=== PATIENT | male | born 1990 | race Caucasian/White ===

== ENCOUNTER → 2018-07-17 | Outpatient (CLI) | payer MEDICAID, SELFPAY | LOC: M OUTALCOH 10:19 | PROVIDERS: ATTEND Psychiatry & Neurology Psychiatry | DX: Z13.9 Encounter for screening, unspecified (principal) ==

== ENCOUNTER 2018-08-15 16:00 | Outpatient (RCR) | payer MEDICAID, SELFPAY | END 2018-08-22 | LOC: M OUTALCOH 16:00 | PROVIDERS: ATTEND Psychiatry & Neurology Psychiatry | DX: F12.20 Cannabis dependence, uncomplicated (principal); F14.20 Cocaine dependence, uncomplicated; F17.200 Nicotine dependence, unspecified, uncomplicated ==

== ENCOUNTER 2021-03-28 03:25 | Emergency (ER) | payer MEDICAID ==
[~2021-03-28] VITALS: Ht 170.2 cm; Wt 68.2 kg
[~2021-03-28 03:25] MED LIST: RALTEGRAVIR 400 MG TAB (ISENTRESS) PO SCH; TRUVADA 200MG/300MG TABLET PO SCH
[2021-03-28 07:11] LABS: BASO # 0.1 10^3/uL (0.0-0.2); BASO % 0.7 % (0.0-1.0); EOS # 0.9 10^3/uL (0.0-0.5); EOS % 9.4 % (0.0-3.0); HEMATOCRIT 40.4 % (42.0-52.0); HEMOGLOBIN 13.4 g/dl (13.5-17.5); LYMPH # 2.3 10^3/uL (1.5-5.0); LYMPH % 25.3 % (24.0-44.0); MEAN CORPUSCULAR HEMOGLOBIN 29.7 pg (27.0-33.0); MEAN CORPUSCULAR HGB CONC 33.2 g/dl (32.0-36.5); MEAN CORPUSCULAR VOLUME 89.6 fl (80.0-96.0); MONO % 11.2 % (2.0-8.0); NEUTROPHILS # 4.9 10^3/uL (1.5-8.5); NEUTROPHILS % 53.3 % (36.0-66.0); PLATELET COUNT, AUTOMATED 297 10^3/uL (150-450); RED BLOOD COUNT 4.51 10^6/uL (4.30-6.10); WHITE BLOOD COUNT 9.2 10^3/uL (4.0-10.0)
[2021-03-28] MEDS ORDERED: ALBUTEROL 90 MCG/ACT 8GM HFA INHALER INH ONE (07:20)
[2021-03-28] MEDS ORDERED: EXPOSURE KIT-ADULT 7 DAY SUPPLY PO ONE (07:25)
[2021-03-28 07:40] LABS: ALBUMIN 3.8 GM/DL (3.2-5.2); ALT/SGPT 25 U/L (12-78); BILIRUBIN,TOTAL 0.3 MG/DL (0.2-1.0); BLOOD UREA NITROGEN 30 MG/DL (7-18); CALCIUM LEVEL 8.9 MG/DL (8.5-10.1); CARBON DIOXIDE LEVEL 29 MEQ/L (21-32); CHLORIDE LEVEL 107 MEQ/L (98-107); GLOMERULAR FILTRATION RATE > 60.0 (>60); GLUCOSE, FASTING 83 MG/DL (70-100); POTASSIUM SERUM 5.3 MEQ/L (3.5-5.1); SODIUM LEVEL 141 MEQ/L (136-145); TOTAL PROTEIN 6.9 GM/DL (6.4-8.2)
--- OUTSIDE RECORDS SUMMARY | 2021-03-28 07:50 | CCD ---
Author Author Bryson Conway Organization Unknown Address [address] [place] [address] [place] [address] Phone Unavailable Care Team Providers Care Heel Stiffener Name Role Phone Keerthi Conway PCP Allergies, Adverse Reactions, Alerts No Data in Section Problem List Concept Problem Description Status Start Date Created Date Resolv ed Date Snomed Code F43.23 Adjustment Disorder, With mixed anxiety and depressed mood Active 02/12/2021 Medications No Data in Section Social History Social History Element Description Concept Effective Date Smoking Status Unknown if ever smoked [id number] Immunizations No Data in Section Vital Signs No Data in Section Procedures Date Concept Id Description Targeted Site Concept Targeted Site Concept Type 02/12/2021 H2011 Crisis Intervention - Brief CPT Patient has no history of implantable de vices Encounters Encounter Start Date End Date Encounter Type Description Diagnosis Di agnosis Desc Location Author First Name Author Last Name Npid Taxonomy Cod e Taxonomy Desc Phone Number Location Addr1 Location Addr2 Location [facility] Location [place] Location Zip [id number] 02/12/2021 02/12/2021 H2011 Crisis Intervention - Brief F43.23 Adjustment disorder with mixed anxiety and depressed mood [facility] [id number] Sterile Preparation Technician [phone] [address] [place] [address] [place] [address] Plan of Treatment No Data in Section Lab Results No Data in Section Instructions No Data in Section Insurance Providers Insurance Id Policy Effective Date Policy Thru Date Company N shea [id number] 2021 [facility]
--- OUTSIDE RECORDS SUMMARY | 2021-03-28 07:50 | CCD ---
Author Author Bryson Scott Organization Unknown Address [address] [place] [address] Phone Unavailable Care Team Providers Care Pyrometer Temperature Regulator Name Role Phone TylerJoyce PCP Allergies, Adverse Reactions, Alerts No Data in Section Problem List Concept Problem Description Status Start Date Created Date Resolv ed Date Snomed Code F43.23 Adjustment Disorder, With mixed anxiety and depressed mood Active 02/13/2021 Medications No Data in Section Social History Social History Element Description Concept Effective Date Smoking Status Unknown if ever smoked [id number] Immunizations No Data in Section Vital Signs No Data in Section Procedures Date Concept Id Description Targeted Site Concept Targeted Site Concept Type 02/13/2021 H2011 Crisis Intervention - Brief CPT Patient has no history of implantable de vices Encounters Encounter Start Date End Date Encounter Type Description Diagnosis Di agnosis Desc Location Author First Name Author Last Name Npid Taxonomy Cod e Taxonomy Desc Phone Number Location Addr1 Location Addr2 Location [facility] Location [facility] Location Zip [id number] 02/13/2021 02/13/2021 H2011 Crisis Intervention - Brief F43.23 Adjustment disorder with mixed anxiety and depressed mood [facility] Tyler Cook [id number] Cash Sales Audit Clerk [phone] [address] [place] [address] Plan of Treatment No Data in Section Lab Results No Data in Section Instructions No Data in Section Insurance Providers Insurance Id Policy Effective Date Policy Thru Date Company N shea [id number] 2021 [facility]
--- OUTSIDE RECORDS SUMMARY | 2021-03-28 07:50 | CCD | Continuity of Care Document ---
Author Author Nurse 2, Bryson Sainz Organization Unknown Address [address] [place] [address] Phone Unavailable Problems Description No Information Available Social History Type Date Description Comments Sex Unknown Allergies and adverse reactions Description No Known Drug Allergies Medications Description No Information Available Immunizations Description No Information Available Vital Signs Date Vital Result Comment 02/08/2021 9:22am BP Systolic 122 mmHg BP Diastolic 78 mmHg Heart Rate 66 /min Weight 149.00 lb Results Description No Information Available Procedures Description No Information Available Medical Devices Description No Information Available Encounters Description No Information Available Assessments Description No Information Available Plan of Treatment No Information Available Functional Status Description No Information Available Mental Status Description No Information Available Referrals Description No Information Available
--- OUTSIDE RECORDS SUMMARY | 2021-03-28 07:50 | CCD ---
Author Author Bryson Scott Organization Unknown Address [address] [place] [address] Phone Unavailable Care Team Providers Care Tubing Assembler Name Role Phone TylerJoyce PCP Allergies, Adverse Reactions, Alerts No Data in Section Problem List Concept Problem Description Status Start Date Created Date Resolv ed Date Snomed Code F43.23 Adjustment Disorder, With mixed anxiety and depressed mood Active 02/09/2021 Medications No Data in Section Social History Social History Element Description Concept Effective Date Smoking Status Unknown if ever smoked [id number] Immunizations No Data in Section Vital Signs No Data in Section Procedures Date Concept Id Description Targeted Site Concept Targeted Site Concept Type 02/09/2021 H2011 Crisis Intervention - Brief CPT Patient has no history of implantable de vices Encounters Encounter Start Date End Date Encounter Type Description Diagnosis Di agnosis Desc Location Author First Name Author Last Name Npid Taxonomy Cod e Taxonomy Desc Phone Number Location Addr1 Location Addr2 Location [facility] Location [facility] Location Zip [id number] 02/09/2021 02/09/2021 H2011 Crisis Intervention - Brief F43.23 Adjustment disorder with mixed anxiety and depressed mood [facility] Tyler Cook [phone] [id number] Line Patrolman [phone] [address] [place] [address] Plan of Treatment No Data in Section Lab Results No Data in Section Instructions No Data in Section Insurance Providers Insurance Id Policy Effective Date Policy Thru Date Company N shea [id number] [facility]
--- OUTSIDE RECORDS SUMMARY | 2021-03-28 07:51 | CCD | Continuity of Care Document ---
Author Author Bryson MARIE M.D. Organization Unknown Address [address] [place] [address] Phone [phone] Problems Description No Information Available Social History Type Date Description Comments Sex Unknown Allergies and adverse reactions Description No Information Available Medications Description No Information Available Immunizations Description No Information Available Vital Signs Description No Information Available Results Description No Information Available Procedures Description No Information Available Medical Devices Description No Information Available Encounters Description No Information Available Assessments Description No Information Available Plan of Treatment No Information Available Functional Status Description No Information Available Mental Status Description No Information Available Referrals Description No Information Available
--- OUTSIDE RECORDS SUMMARY | 2021-03-28 07:51 | CCD ---
Author Author [facility] Organization [facility] Address Unknown Phone Unavailable Care Team Providers Care Swaging Machine Adjuster Name Role Phone Joyce Scott Unavailable ASARMARIA E MD Unavailable Unavailable ASAR, MARIA E LATHAM Unavailable Unavailable ASARMARIA E MD Unavailable Unavailable ASARMARIA E MD Unavailable Unavailable ASARMARIA E MD Unavailable Unavailable ASARMARIA E MD Unavailable Unavailable ASARMARIA E MD Unavailable Unavailable Asar, Hasanalusama Sanderson MD Unavailable Unavailable UNKNOWN Unavailable Unavailable REASON, L EDWARD DO Unavailable Unavailable REASON, L EDWARD DO Unavailable Unavailable REASON, L EDWARD DO Unavailable Unavailable REASON, L EDWARD DO Unavailable Unavailable REASON, L EDWARD DO Unavailable Unavailable REASON, L EDWARD DO Unavailable Unavailable REASON, L EDWARD DO Unavailable Unavailable REASON, L EDWARD DO Unavailable Unavailable REASON, L EDWARD DO Unavailable Unavailable REASON, L EDWARD DO Unavailable Unavailable REASON, L EDWARD DO Unavailable Unavailable REASON, L EDWARD DO Unavailable Unavailable REASON, L EDWARD DO Unavailable Unavailable REASON, L EDWARD DO Unavailable Unavailable REASON, L EDWARD DO Unavailable Unavailable REASON, L EDWARD DO Unavailable Unavailable REASON, L EDWARD DO Unavailable Unavailable REASON, L EDWARD DO Unavailable Unavailable REASON, L EDWARD DO Unavailable Unavailable REASON, L EDWARD DO Unavailable Unavailable REASON, L EDWARD DO Unavailable Unavailable REASON, L EDWARD DO Unavailable Unavailable REASON, L EDWARD DO Unavailable Unavailable REASON, L EDWARD DO Unavailable Unavailable REASON, L EDWARD DO Unavailable Unavailable REASON, L EDWARD DO Unavailable Unavailable REASON, L EDWARD DO Unavailable Unavailable REASON, L EDWARD DO Unavailable Unavailable REASON, L EDWARD DO Unavailable Unavailable REASON, L EDWARD DO Unavailable Unavailable REASON, L EDWARD DO Unavailable Unavailable REASON, L EDWARD DO Unavailable Unavailable REASON, L EDWARD DO Unavailable Unavailable REASON, L EDWARD DO Unavailable Unavailable REASON, L EDWARD DO Unavailable Unavailable REASON, L EDWARD DO Unavailable Unavailable REASON, L EDWARD DO Unavailable Unavailable REASON, L EDWARD DO Unavailable Unavailable REASON, L EDWARD DO Unavailable Unavailable REASON, L EDWARD DO Unavailable Unavailable REASON, L EDWARD DO Unavailable Unavailable REASON, L EDWARD DO Unavailable Unavailable REASON, L EDWARD DO Unavailable Unavailable REASON, L EDWARD DO Unavailable Unavailable REASON, L EDWARD DO Unavailable Unavailable REASON, L EDWARD DO Unavailable Unavailable REASON, L EDWARD DO Unavailable Unavailable REASON, L EDWARD DO Unavailable Unavailable REASON, L EDWARD DO Unavailable Unavailable REASON, L EDWARD DO Unavailable Unavailable REASON, L EDWARD DO Unavailable Unavailable REASON, L EDWARD DO Unavailable Unavailable REASON, L EDWARD DO Unavailable Unavailable REASON, L EDWARD DO Unavailable Unavailable REASON, L EDWARD DO Unavailable Unavailable REASON, L EDWARD DO Unavailable Unavailable REASON, L EDWARD DO Unavailable Unavailable REASON, L EDWARD DO Unavailable Unavailable REASON, L EDWARD DO Unavailable Unavailable REASON, L EDWARD DO Unavailable Unavailable REASON, L EDWARD DO Unavailable Unavailable REASON, L EDWARD DO Unavailable Unavailable REASON, L EDWARD DO Unavailable Unavailable REASON, L EDWARD DO Unavailable Unavailable REASON, L EDWARD DO Unavailable Unavailable REASON, L EDWARD DO Unavailable Unavailable REASON, L EDWARD DO Unavailable Unavailable REASON, L EDWARD DO Unavailable Unavailable Keerthi Conway Unavailable ZoraidaKeerthi Unavailable Desiree Thompson Unavailable Unavailable Re-disclosure Warning The records that you are about to access may contain information from federally-assisted alcohol or drug abuse programs. If such information is present, then the following federally mandated warning applies: This information has been disclosed to you from records protected by federal confidentiality rules (42 CFR part 2). The federal rules prohibit you from making any further disclosure of this information unless further disclosure is expressly permitted by the written consent of the person to whom it pertains or as otherwise permitted by 42 CFR part 2. A general authorization for the release of medical or other information is NOT sufficient for this purpose. The Federal rules restrict any use of the information to criminally investigate or prosecute any alcohol or drug abuse patient.The records that you are about to access may contain highly sensitive health information, the redisclosure of which is protected by Article 27-F of the [facility] Public Health law. If you continue you may have access to information: Regarding HIV / AIDS; Provided by facilities licensed or operated by the [facility] Office of Mental Health; or Provided by the [facility] Office for People With Developmental Disabilities. If such information is present, then the following [facility] mandated warning applies: This information has been disclosed to you from confidential records which are protected by state law. State law prohibits you from making any further disclosure of this information without the specific written consent of the person to whom it pertains, or as otherwise permitted by law. Any unauthorized further disclosure in violation of state law may result in a fine or mcfp sentence or both. A general authorization for the release of medical or other information is NOT sufficient authorization for further disc losure. Allergies and Adverse Reactions Type Description Substance Reaction Status Data Source(s ) Drug allergy Drug allergy apple 'Throat Swells' Cant on [facility] Drug allergy Drug allergy risperidone (From Risperdal) Hives [facility] Drug allergy Drug allergy No Known Allergies [facility] Encounters Encounter Providers Location Date Indications Data Source(s ) Crisis Intervention - Brief Attender: Joyce Scott [facility] 02/13/2021 09:30:00 AM EDT - 02/13/2021 09:30:00 AM EDT [facility] Attender: Joyce Scott 02/13/2021 12:00:00 AM E DT [facility] ([facility] Crisis Intervention - Brief Attender: Keerthi Conway [facility] 02/12/2021 10:00:00 AM EDT - 02/12/2021 10:00:00 AM EDT [facility] Attender: Keerthi Conway 02/12/2021 12:00:00 AM E DT [facility] Crisis Intervention - Brief Attender: Joyce Scott [facility] 02/09/2021 08:30:00 AM EDT - 02/09/2021 08:30:00 AM EDT [facility] Attender: Joyce Tyler 02/09/2021 12:00:00 AM E DT [facility] ([facility] Inpatient Attender: Maria E Garnett nder: MARIA E MCGOVERN MDAdmitter: MARIA E WEBSTER 12/19/2020 11:09:00 AM EDT - 01/16/2021 06:11:00 AM EDT PSYCHOACTIVE SUBSTANCE DEPENDENCE [facility] PSYCHOACTIVE SUBSTANCE DEPENDENCE Patient discharged. Unlisted evaluation and management service Performer: Leandra knutson 12/11/2020 03:25:00 PM EDT - 12/20/2020 12:30:00 AM EDT [facility] ([facility]) Inpatient Attender: Maria E Garnett nder: MARIA E MCGOVERN MDAdmitter: MARIA E WEBSTER 10/22/2020 02:33:00 PM EDT - 11/03/2020 02:45:00 PM EDT PSYCHOACTIVE SUBSTANCE DEPENDENCE [facility] PSYCHOACTIVE SUBSTANCE DEPENDENCE Patient discharged. Outpatient Attender: UNKNOWN PASHAEJGuille 10/21/2020 09:50:00 AM E [facility] Outpatient Attender: UNKNOWN CPSCAORT-LABEJN 10/20/2020 08:13:00 PM E [facility] Inpatient Attender: EDWARD REASON DOAdmitter: RYAN Han DO ED-MSP 10/20/2020 05:45:00 PM EDT - 10/21/2020 05:25:00 PM EDT F11.20 [facility] F11.20 Patient discharged. Outpatient Attender: EDWARD REASON DO ED-LABPNP 10/20 04:30:00 PM EDT - 10/20/2020 04:31:00 PM EDT COVID SCREENING [facility] COVID SCREENING Patient discharged. Medications Medication Brand Name Start Date Product Form Dose Route Admi nistrative Instructions Pharmacy Instructions Status Indications Reaction Description Data Source(s) 2-0.5 mg 11/04/2020 12:00:00 AM EDT film 7 DISSOLVE 1 FILM UNDER THE TONGUE AT 1800 MAXIMUM DAILY DOSE = 1 DISSOLVE 1 FILM UNDER THE TONGUE AT 1800 MAXIMUM DAILY DOSE = 1 SOLD: 11/08/2020 Maria Eugenia luke 4-1 mg 11/04/2020 12:00:00 AM EDT film 7 DISSOLVE 1 STRIP UNDER THE TONGUE DAILY MAXIMUM DAILY DOSE = 1 DISSOLVE 1 STRIP UNDER THE TONGUE DAILY MAXIMUM DAILY DOSE = 1 SOLD: 11/08/2020 Maria Eugenia luke olanzapine 5 MG Oral Tablet OLANZAPINE 11/04/2020 12:00:00 AM EDT tabl et 14 TAKE ONE TABLET BY MOUTH AT BEDTIME TAKE ONE TABLET BY MOUTH AT BEDTIME SOLD: 11/08/2020 [facility] Insurance Providers Payer name Policy type / Coverage type Policy ID Covered alliance party ID Covered alliance party's relationship to [place] Policy [place] [id number] SP [id number] [place] MEDICAID [id number] S [id number] MEDICARE [id number] S [id number] MEDICAID [id number] S [id number] MEDICARE [id number] S [id number] MEDICARE [id number] S [id number] SELF PAY S SELF PAY S MEDICAID [id number] SP [id number] SELF PAY ONLY NONE SP NONE SELF PAY [id number] S [id number] Problems, Conditions, and Diagnoses Code Display Name Description Problem Type Effective Dates Data Source(s) 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, in remission ALCOHOL ABUSE, IN REMISSIO N Diagnosis 12/19/2020 11:09:00 AM [facility] F90.9 Attention-deficit hyperactivity disorder , unspecified type ATTENTION- DEFICIT HYPERACTIVITY DISORDER, UNSPECIFIED TYPE Diagnosis 12/19 11:09:00 AM [facility] F41.9 Anxiety disorder, unspecified ANXIETY DISORDER, UNSPEC IFIED Diagnosis 12/19/2020 11:09:00 AM [facility] F20.9 Schizophrenia, unspecified SCHIZOPHRENIA, UNSPECIFIED Diagnosis 12/19/2020 11:09:00 AM [facility] F31.9 Bipolar disorder, unspecified BIPOLAR DISORDER, UNSPEC IFIED Diagnosis 12/19/2020 11:09:00 AM [facility] F17.200 Nicotine dependence, unspecified, uncomp licated NICOTINE DEPENDENCE, UNSPECIFIED, UNCOMPLICATED Diagnosis 12/19/2020 11:09:00 AM [facility] F11.20 Opioid dependence, uncomplicated OPIOID DEPENDEN CE, UNCOMPLICATED Diagnosis 12/19/2020 11:09:00 AM [facility] F15.20 Other stimulant dependence, uncomplicate d OTHER STIMULANT DEPENDENCE, UNCOMPLICATED Diagnosis 12/19/2020 11:09:00 AM EDT [facility] F19.10 Other psychoactive substance abuse, unco mplicated OTHER PSYCHOACTIVE SUBSTANCE ABUSE, UNCOMPLICATED Diagnosis 10/22/2020 02:33:[address] [facility] F32.9 Major depressive disorder, single episod e, unspecified MAJOR DEPRESSIVE DISORDER, SINGLE EPISODE, UNSPECIFIED Diagnosis 10/22/2020 02:33:00 PM [facility] F17.210 Nicotine dependence, cigarettes, uncompl icated NICOTINE DEPENDENCE, CIGARETTES, UNCOMPLICATED Diagnosis 10/22/2020 02:33:00 PM [facility] F14.20 Cocaine dependence, uncomplicated COCAINE DEPEND ENCE, UNCOMPLICATED Diagnosis 10/22/2020 02:33:00 PM [facility] F20.9 Schizophrenia, unspecified SCHIZOPHRENIA, UNSPECIFIED Diagnosis 10/20/2020 05:45:00 PM [facility] Z59.0 Homelessness HOMELESSNESS Diagnosis 10/20/2020 05:45:00 P [facility] F17.210 Nicotine dependence, cigarettes, uncompl icated NICOTINE DEPENDENCE, CIGARETTES, UNCOMPLICATED Diagnosis 10/20/2020 05:45:00 PM [facility] F41.9 Anxiety disorder, unspecified ANXIETY DISORDER, UNSPEC IFIED Diagnosis 10/20/2020 05:45:00 PM [facility] F32.9 Major depressive disorder, single episod e, unspecified MAJOR DEPRESSIVE DISORDER, SINGLE EPISODE, UNSPECIFIED Diagnosis 10/20/2020 05:45:00 PM [facility] F14.23 Cocaine dependence with withdrawal COCAINE DEPEN DENCE WITH WITHDRAWAL Diagnosis 10/20/2020 05:45:00 PM [facility] F11.23 Opioid dependence with withdrawal OPIOID DEPENDE NCE WITH WITHDRAWAL Diagnosis 10/20/2020 05:45:00 PM EDT [facility] Z11.52 ENCOUNTER FOR SCREENING FOR COVID-19 ENC OUNTER FOR SCREENING FOR COVID-19 Diagnosis 10/20/2020 04:30:00 PM EDT [facility] vira F43.23 Adjustment disorder with mixed anxiety a nd depressed mood Adjustment Disorder, With mixed anxiety and depressed mood Condition 2020 12:00:00 AM EDT [facility] ([facility]) Surgeries/Procedures Procedure Description Date Indications Data Source(s) Crisis intervention service, per 15 minutes 02/13/2021 12:00:00 AM EDT - 02/13/2021 12:00:00 AM EDT [facility] ([facility]) Crisis intervention service, per 15 minutes 02/13/2021 12:00:00 AM EDT [facility] Crisis intervention service, per 15 minutes 02/12/2021 12:00:00 AM EDT - 02/12/2021 12:00:00 AM EDT [facility] ([facility]) Crisis intervention service, per 15 minutes 02/12/2021 12:00:00 AM EDT [facility] ([facility]) Crisis intervention service, per 15 minutes 02/09/2021 12:00:00 AM EDT - 02/09/2021 12:00:00 AM EDT [facility]) Crisis intervention service, per 15 minutes 02/09/2021 12:00:00 AM EDT [facility] ([facility]) Individual Counseling for Substance Abuse Treatment, C ognitive-Behavioral INDIV TELEPHONE DIRECTORY DISTRIBUTOR DRIVER FOR SUBSTANCE ABUSE, COGNITIVE BEHAVIORAL 12/19/2020 12:00:00 AM [facility] Group Counseling for Substance Abuse Treatment, Motiva tional Enhancement GROUP TELEPHONE DIRECTORY DISTRIBUTOR DRIVER FOR SUBSTANCE ABUSE, MOTIVATIONAL ENHANCE 12/19/2020 12:00:00 AM [facility] Group Counseling for Substance Abuse Treatment, Spirit ual GROUP COUNSELING FOR SUBSTANCE ABUSE TREATMENT, SPIRITUAL 12/19/2020 12:00:00 AM [facility] Group Counseling for Substance Abuse Treatment, Cognit agne-Behavioral GROUP TELEPHONE DIRECTORY DISTRIBUTOR DRIVER FOR SUBSTANCE ABUSE, COGNITIVE BEHAVIORAL 12/19/2020 12:00:00 AM EDT [facility] Individual Counseling for Substance Abuse Treatment, C ontinuing Care INDIV TELEPHONE DIRECTORY DISTRIBUTOR DRIVER FOR SUBSTANCE ABUSE TREATMENT, CONTINUING CARE 10/22/2020 12:00:00 AM EDT [facility] Group Counseling for Substance Abuse Treatment, Interp ersonal GROUP TELEPHONE DIRECTORY DISTRIBUTOR DRIVER FOR SUBSTANCE ABUSE TREATMENT, INTERPERSONAL 10/22/2020 12:00:00 AM EDT [facility] Detoxification Services for Substance Abuse Treatment DETOXIFICATION SERVICES FOR SUBSTANCE ABUSE TREATMENT 10/20/2020 12:00:00 AM EDT [facility] [id number] 10/20/2020 12:00:00 AM EDT [facility] Results ID Date Data Source [id number] 12/31/2020 09:36:00 PM EDT [facility] Name Value Range Interpretation Code Description Data Laquita rce(s) Supporting Document(s) Opiate Screen,Urine Negative Normal (applies to non-nume lit results) [facility] Amphetamine Screen,Urine Negative Normal (applies to non -numeric results) [facility] Benzodiazepines Scrn,Ur result Negative N ormal (applies to non-numeric results) [facility] Cocaine Screen,Urine Negative Normal (applies to non-num jose roberto results) [facility] Methadone Screen,Urine Negative Normal (applies to non-n umeric results) [facility] Cannabinoid Screen, Ur Negative Normal (applies to non-n umeric results) [facility] Therapeutic Drug Ranges for Emergency an d Rehabilitation Threshold Levels (ng/mL) Cocaine 300 Opiates 300 Cannabinoids 50 Barbiturates 200 Benzodiazepine 200 Methadone 300 Amphetamines 1000 All positive find ings are presumptive and unconfirmed. Confirmation of positive results are performed only at request of provider. Unconfirmed results must not be used for non-medical purposes (i.e. pre-employment and legal purposes) ID Date Data Source [id number] 12/20/2020 01:17:00 PM EDT [facility] Name Value Range Interpretation Code Description Data Laquita rce(s) Supporting Document(s) Hep C Ab-T Test Nonreactive Normal (applies to non-numeric results) [facility] ID Date Data Source [id number] 12/20/2020 01:17:00 PM EDT [facility] Name Value Range Interpretation Code Description Data Laquita rce(s) Supporting Document(s) HIV 1/2 Ab p24 Ag Screen Nonreactive Normal (applies to non-numeric results) [facility] ID Date Data Source [id number] 12/20/2020 12:36:00 PM EDT [facility] Name Value Range Interpretation Code Description Data Laquita rce(s) Supporting Document(s) Sodium 140 mmol/L 137-145 Normal (applies to non-numeric resul ts) [facility] Potassium 3.5-5.1 Normal (applies to non-numeric resul ts) [facility] Chloride 107 mmol/L 98-112 Normal (applies to non-numeric resul ts) [facility] Carbon Dioxide CO2 22.0-33.0 Normal (applies to non-numer ic results) [facility] Anion Gap 4.0-11.0 Below low normal [facility] BUN 31 mg/dL 9-20 Above high normal [facility] Creatinine 0.80-1.50 Normal (applies to non-numeric resul ts) [facility] GFR 75 mL/min >60 Normal (applies to non-numeric resul ts) [facility] Result based on MDRD formula. Glucose Level 83 mg/dL 74-99 Normal (applies to non-numeric re sults) [facility] The reference range is only applicable w hen fasting. Calcium-Uncorrected 8.4-10.2 Normal (applies to non-nume lit results) [facility] Corrected Calcium 8.4-10.2 Normal (applies to non-numeri c results) [facility] Bilirubin,Total 0.2-1.3 Normal (applies to non-numeric results) [facility] Bilirubin,Direct 0.0-0.3 Normal (applies to non-numeric results) [facility] SGOT(AST) 34 U/L 17-59 Normal (applies to non-numeric resul ts) [facility] SGPT(ALT) 76 U/L 21-72 Above high normal [facility] Alkaline Phosphatase 65 U/L 38-126 Normal (applies to non-num jose roberto results) [facility] can increase Alkaline Phosp le vels up to 2 times the normal adult value. Normal values for children and adolescents are 2 to 3 times the normal adult value. CPK 354 U/L 39-308 Above high normal [facility] Total Protein 6.3-8.2 Normal (applies to non-numeric re sults) [facility] Albumin 3.5-5.0 Normal (applies to non-numeric resul ts) [facility] Thyroid Stimulate Hormone TSH 0.358-3.740 Above high abhay l [facility] ID Date Data Source [id number] 12/20/2020 12:36:00 PM EDT [facility] Name Value Range Interpretation Code Description Data Laquita rce(s) Supporting Document(s) Magnesium 1.80-2.40 Normal (applies to non-numeric resul ts) [facility] ID Date Data Source [id number] 12/20/2020 12:08:00 PM EDT [facility] Name Value Range Interpretation Code Description Data Laquita rce(s) Supporting Document(s) White Blood Count 4.8-10.8 Normal (applies to non-numeri c results) [facility] Red Blood Count 4.35-6.08 Normal (applies to non-numeric results) [facility] Hemoglobin 13.0-17.5 Normal (applies to non-numeric resul ts) [facility] Hematocrit 37.7-51.0 Normal (applies to non-numeric resul ts) [facility] Mean Corpuscular Volume 80-94 Normal (applies to non- numeric results) [facility] Mean Corpuscular Hemoglobin 27.0-33.0 Normal (appli es to non-numeric results) [facility] Mean Corpuscular HGB Conc 32.0-36.0 Above high normal [facility] Red Cell Distribution Width 11.5-14.5 Normal (appli es to non-numeric results) [facility] Platelet Count 331 X10 3/uL 130-450 Normal (applies to non-numeric results) [facility] Mean Platelet Volume 9.6-13.1 Normal (applies to non-num jose roberto results) [facility] Imm Grans% (AUTO) 0 % 0-2 Normal (applies to non-numeri c results) [facility] Neutrophils % (AUTO) 51 % 40-75 Normal (applies to non-num jose roberto results) [facility] Lymphocytes % (AUTO) 26 % 21-46 Normal (applies to non-num jose roberto results) [facility] Monocytes % (AUTO) 12 % 5-12 Normal (applies to non-numer ic results) [facility] Eosinophils % (AUTO) 9 % 1-5 Above high normal C [facility] Basophils % (AUTO) 1 % 0-1 Normal (applies to non-numer ic results) [facility] Imm Grans# (AUTO) 0.0-0.5 Normal (applies to non-numeri c results) [facility] Neutrophils # (AUTO) 1.5-8.1 Normal (applies to non-num jose roberto results) [facility] Lymphocytes # (AUTO) 1.0-3.1 Normal (applies to non-num jose roberto results) [facility] Monocytes # (AUTO) 0.2-1.3 Normal (applies to non-numer ic results) [facility] Eosinophils# (AUTO) 0.0-0.5 Above high normal [facility] Basophils # (AUTO) 0.0-0.1 Normal (applies to non-numer ic results) [facility] ID Date Data Source [id number] 12/19/2020 01:48:00 PM EDT [facility] Name Value Range Interpretation Code Description Data Laquita rce(s) Supporting Document(s) Opiate Screen,Urine Negative Normal (applies to non-nume lit results) [facility] Amphetamine Screen,Urine Negative Normal (applies to non -numeric results) [facility] Benzodiazepines Scrn,Ur result Negative N ormal (applies to non-numeric results) [facility] Cocaine Screen,Urine Negative Normal (applies to non-num jose roberto results) [facility] Methadone Screen,Urine Negative Normal (applies to non-n umeric results) [facility] Cannabinoid Screen, Ur Negative Normal (applies to non-n umeric results) [facility] Therapeutic Drug Ranges for Emergency an d Rehabilitation Threshold Levels (ng/mL) Cocaine 300 Opiates 300 Cannabinoids 50 Barbiturates 200 Benzodiazepine 200 Methadone 300 Amphetamines 1000 All positive find ings are presumptive and unconfirmed. Confirmation of positive results are performed only at request of provider. Unconfirmed results must not be used for non-medical purposes (i.e. pre-employment and legal purposes) ID Date Data Source [id number] 12/19/2020 01:22:00 PM EDT [facility] Name Value Range Interpretation Code Description Data Laquita rce(s) Supporting Document(s) Color,Urine Yellow Normal (applies to non-numeric resu lts) [facility] Clarity,Urine Clear Normal (applies to non-numeric re sults) [facility] Specific [place],Urine 1.001-1.030 Normal (applies to non- numeric results) [facility] PH,Urine 5.0-8.0 Normal (applies to non-numeric resul ts) [facility] Protein,Urine Negative Normal (applies to non-numeric re sults) [facility] [facility] Glucose,Urine (UA) Negative Normal (applies to non-numer ic results) [facility] Ketones,Urine Negative Normal (applies to non-numeric re sults) [facility] Blood,Urine Negative Normal (applies to non-numeric resu lts) [facility] Bilirubin,Urine Negative Normal (applies to non-numeric results) [facility] Urobilinogen,Urine Norm 0.2-1 Normal (applies to non-numer ic results) [facility] Leukocyte Esterase,Urine Negative Normal (applies to non -numeric results) [facility] Nitrite,Urine Negative Normal (applies to non-numeric re sults) [facility] ID Date Data Source [id number] 12/19/2020 11:10:00 AM EDT [facility] Name Value Range Interpretation Code Description Data Laquita rce(s) Supporting Document(s) Respiratory specimen severe acute respir atory syndrome coronavirus 2 (SARS-CoV-2) RNA Negative (qualifier value) [facility] This lab was ordered by [facility] and reported by [facility]. ID Date Data Source [id number] 12/19/2020 11:43:00 AM EDT [facility] Negative results should be treated as pr esumptive and, if inconsistent with clinical signs and symptoms or necessary for patient management, should be tested with different authorized or cleared molecular tests. Negative results do not preclude SARS-CoV-2 infection and should not be used as the sole basis for patient management decisions. Negative results should be considered in the context of a patients recent exposures, history and the presence of clinical signs and symptoms consistent with COVID-19. This test has not been FDA cleared or approved; this test has been authorized by FDA under an Emergency Use Authorization for use by laboratories certified under the Clinical Laboratory Improvement Amendments of 1988 (CLIA), 42 U.S.C. 263a, to perform moderate complexity/high complexity tests and at the Point of Care (POC), i.e., in patient care settings operating under a CLIA Certificate of Waiver, Certificate of Compliance, or Certificate of Accreditation. Factsheets for healthcare providers: https://www.fda.gov/media/467920/download Factsheets for patients: https://www.fda.gov/media/679660/download The ID NOW Instrument is a rapid molecular in vitro diagnostic test utilizing an isothermal nucleic acid amplification technology intended for the qualitative detection of nucleic acid from the SARS-CoV-2 viral RNA. THIS IS A STATE REPORTABLE COMMUNICABLE DISEASE. Manual entry verified by Kavya Stuart 12/19/20 1142 Test Performed By: [facility] [address] [place] [address] Director: Bassem Ferrara MD Name Value Range Interpretation Code Description Data Laquita rce(s) Supporting Document(s) ID Date Data Source [id number] 12/11/2020 04:00:00 AM EDT [facility] ([facility]) Name Value Range Interpretation Code Description Data Laquita rce(s) Supporting Document(s) COLOR YELLOW [facility] SPECIFIC GR 1.012 [facility] APPEARANCE CLOUDY [facility]) PH 8.0 [facility]) GLUCOSE NEGATIVE [facility]) BILIRUBIN NEGATIVE [facility]) KETONES NEGATIVE [facility]) OCCULT BLOO NEGATIVE [facility]) NITRITE NEGATIVE [facility] PROTEIN NEGATIVE [facility]) WBC NONE SEEN [facility] ([facility]) LEUKOCYTE E NEGATIVE [facility]) SQUAMOUS EP NONE SEEN [facility]) RBC NONE SEEN [facility]) TRANSITIONA DNR [facility]) BACTERIA NONE SEEN [facility]) RENAL EPITH DNR [facility] CALCIUM OXA DNR [facility]) URIC ACID C DNR [facility]) AMORPHOUS S DNR [facility]) TRIPLE PHOS DNR [facility]) CRYSTALS DNR [facility]) HYALINE CAPRI NONE SEEN [facility]) YEAST DNR [facility] GRANULAR CA DNR [facility]) CASTS DNR [facility] COMMENTS DNR [facility] NOTE DNR [facility] E [id number] [facility] ID Date Data Source [id number] 12/12/2020 12:23:00 PM EDT [facility] FASTING:NOFASTING: NOReceived: 1 at 06:51:00 QPT: [facility], [address], [address] [place], [address], Rigo Goode MD Name Value Range Interpretation Code Description Data Laquita rce(s) Supporting Document(s) Color of Urine YELLOW YELLOW Normal (applies to non-numeric r esults) [facility] Appearance of Urine CLOUDY CLEAR Abnormal (applies to non-nu meric results) [facility] Specific gravity of Urine by Test strip 1.012 1.001-1. 035 Normal (applies to non-numeric results) [facility] pH of Urine by Test strip 8.0 5.0-8.0 Normal (applies to non-numeric results) [facility] Glucose [Presence] in Urine by Test strip NEGATIVE NEGATI VE Normal (applies to non-numeric results) [facility] Bilirubin.total [Presence] in Urine by Test strip NEGATIVE NEGATIVE Normal (applies to non-numeric results) [facility] Ketones [Presence] in Urine by Test strip NEGATIVE NEGATI VE Normal (applies to non-numeric results) [facility] Hemoglobin [Presence] in Urine by Test strip NEGATIVE NEG ATIVE Normal (applies to non-numeric results) [facility] Protein [Presence] in Urine by Test strip NEGATIVE NEGATI VE Normal (applies to non-numeric results) [facility] Nitrite [Presence] in Urine by Test strip NEGATIVE NEGATI VE Normal (applies to non-numeric results) [facility] Leukocyte esterase [Presence] in Urine by Test strip NEGATIVE NEGATIVE Normal (applies to non-numeric results) [facility] Leukocytes [#/area] in Urine sediment by Microscopy hi gh power field NONE SEEN /HPF < OR = 5 Normal (applies to non-numeric results) [facility] Erythrocytes [#/area] in Urine sediment by Microscopy high power field NONE SEEN /HPF < OR = 2 Normal (applies to non-numeric results) [facility] Epithelial cells.squamous [#/area] in Ur ine sediment by Microscopy high power field NONE SEEN /HPF < OR = 5 Normal (applies to non-numeric results) [facility] Bacteria [#/area] in Urine sediment by Microscopy high power field NONE SEEN /HPF NONE SEEN Normal (applies to non-numeric results) [facility] Hyaline casts [#/area] in Urine sediment by Microscopy low power field NONE SEEN /LPF NONE SEEN Normal (applies to non-numeric results) [facility] ID Date Data Source [id number] 10/28/2020 10:35:00 AM EDT [facility] Name Value Range Interpretation Code Description Data Laquita rce(s) Supporting Document(s) HIV 1/2 Ab p24 Ag Screen Nonreactive Normal (applies to non-numeric results) [facility] ID Date Data Source [id number] 10/23/2020 10:10:00 AM EDT [facility] Name Value Range Interpretation Code Description Data Laquita rce(s) Supporting Document(s) Sodium 142 mmol/L 137-145 Normal (applies to non-numeric resul ts) [facility] Potassium 3.5-5.1 Normal (applies to non-numeric resul ts) [facility] Chloride 109 mmol/L 98-112 Normal (applies to non-numeric resul ts) [facility] Carbon Dioxide CO2 22.0-33.0 Normal (applies to non-numer ic results) [facility] Anion Gap 4.0-11.0 Normal (applies to non-numeric resul ts) [facility] BUN 27 mg/dL 9-20 Above high normal [facility] Creatinine 0.80-1.50 Normal (applies to non-numeric resul ts) [facility] GFR 62 mL/min >60 Normal (applies to non-numeric resul ts) [facility] Result based on MDRD formula. Glucose Level 66 mg/dL 74-99 Below low normal [facility] The reference range is only applicable w hen fasting. Calcium-Uncorrected 8.4-10.2 Normal (applies to non-nume lit results) [facility] Corrected Calcium 8.4-10.2 Normal (applies to non-numeri c results) [facility] Bilirubin,Total 0.2-1.3 Normal (applies to non-numeric results) [facility] Bilirubin,Direct 0.0-0.3 Normal (applies to non-numeric results) [facility] SGOT(AST) 19 U/L 17-59 Normal (applies to non-numeric resul ts) [facility] SGPT(ALT) 29 U/L 21-72 Normal (applies to non-numeric resul ts) [facility] Alkaline Phosphatase 90 U/L 38-126 Normal (applies to non-num jose roberto results) [facility] can increase Alkaline Phosp le vels up to 2 times the normal adult value. Normal values for children and adolescents are 2 to 3 times the normal adult value. CPK 225 U/L 39-308 Normal (applies to non-numeric resul ts) [facility] Total Protein 6.3-8.2 Normal (applies to non-numeric re sults) [facility] Albumin 3.5-5.0 Normal (applies to non-numeric resul ts) [facility] Thyroid Stimulate Hormone TSH 0.358-3.740 No rmal (applies to non-numeric results) [facility] ID Date Data Source [id number] 10/23/2020 10:10:00 AM EDT [facility] Name Value Range Interpretation Code Description Data Laquita rce(s) Supporting Document(s) Magnesium 1.80-2.40 Normal (applies to non-numeric resul ts) [facility] ID Date Data Source [id number] 10/23/2020 10:10:00 AM EDT [facility] Name Value Range Interpretation Code Description Data Laquita rce(s) Supporting Document(s) C-Reactive Protein,Wide Range <3.00 Normal (applies t o non-numeric results) [facility] ID Date Data Source [id number] 10/23/2020 09:43:00 AM EDT [facility] Name Value Range Interpretation Code Description Data Laquita rce(s) Supporting Document(s) White Blood Count 4.8-10.8 Normal (applies to non-numeri c results) [facility] Red Blood Count 4.35-6.08 Normal (applies to non-numeric results) [facility] Hemoglobin 13.0-17.5 Normal (applies to non-numeric resul ts) [facility] Hematocrit 37.7-51.0 Normal (applies to non-numeric resul ts) [facility] Mean Corpuscular Volume 80-94 Normal (applies to non- numeric results) [facility] Mean Corpuscular Hemoglobin 27.0-33.0 Normal (appli es to non-numeric results) [facility] Mean Corpuscular HGB Conc 32.0-36.0 Normal (applies to no n-numeric results) [facility] Red Cell Distribution Width 11.5-14.5 Normal (appli es to non-numeric results) [facility] Platelet Count 305 X10 3/uL 130-450 Normal (applies to non-numeric results) [facility] Mean Platelet Volume 9.6-13.1 Normal (applies to non-num jose roberto results) [facility] Imm Grans% (AUTO) 0 % 0-2 Normal (applies to non-numeri c results) [facility] Neutrophils % (AUTO) 57 % 40-75 Normal (applies to non-num jose roberto results) [facility] Lymphocytes % (AUTO) 27 % 21-46 Normal (applies to non-num jose roberto results) [facility] Monocytes % (AUTO) 11 % 5-12 Normal (applies to non-numer ic results) [facility] Eosinophils % (AUTO) 4 % 1-5 Normal (applies to non-num jose roberto results) [facility] Basophils % (AUTO) 1 % 0-1 Normal (applies to non-numer ic results) [facility] Imm Grans# (AUTO) 0.0-0.5 Normal (applies to non-numeri c results) [facility] Neutrophils # (AUTO) 1.5-8.1 Normal (applies to non-num jose roberto results) [facility] Lymphocytes # (AUTO) 1.0-3.1 Normal (applies to non-num jose roberto results) [facility] Monocytes # (AUTO) 0.2-1.3 Normal (applies to non-numer ic results) [facility] Eosinophils# (AUTO) 0.0-0.5 Normal (applies to non-nume lit results) [facility] Basophils # (AUTO) 0.0-0.1 Normal (applies to non-numer ic results) [facility] ID Date Data Source [id number] 10/22/2020 10:17:00 PM EDT [facility] Name Value Range Interpretation Code Description Data Laquita rce(s) Supporting Document(s) Vitamin D,Total (25OH) 30.0-100.0 Normal (applies to non-n umeric results) [facility] Reference Range: <10 ng/mL: Deficien t 10-30 ng/mL: Insufficient 30-100 ng/mL: Sufficient >100 ng/mL: Toxicity possible ID Date Data Source [id number] 10/31/2020 10:38:00 AM EDT [facility] Name Value Range Interpretation Code Description Data Laquita rce(s) Supporting Document(s) Cannabinoids Confirm,Ur result . Very abnor mal (applies to non-numeric units [facility] Carboxy THC GC/MS Conf 70 ng/mL Cutoff=10 01 Performed at: [facility] [address] [id number] [place]: Heather Carey MD, Phone: [phone] ID Date Data Source [id number] 10/22/2020 07:12:00 PM EDT [facility] Name Value Range Interpretation Code Description Data Laquita rce(s) Supporting Document(s) Bupren Scrn,Ur wRfx LCI SO res Negative N ormal (applies to non-numeric results) [facility] Therapeutic Drug Threshold for Buprenorp emery: 5 ng/mL All positive findings are presumptive and unconfirmed. Confirmation of positive Buprenorphine is automatically reflexed and sent to reference laboratory. Unconfirmed results must not be used for non-medical purposes (i.e. pre-employment and legal purposes) ID Date Data Source [id number] 10/22/2020 04:02:00 PM EDT [facility] Name Value Range Interpretation Code Description Data Laquita rce(s) Supporting Document(s) Opiate Screen,Urine Negative Normal (applies to non-nume lit results) [facility] Amphetamine Screen,Urine Negative [facility] Benzodiazepines Scrn,Ur result Negative N ormal (applies to non-numeric results) [facility] Cocaine Screen,Urine Negative [facility] Methadone Screen,Urine Negative Normal (applies to non-n umeric results) [facility] Cannabinoid Screen, Ur Negative [facility] Therapeutic Drug Ranges for Emergency an d Rehabilitation Threshold Levels (ng/mL) Cocaine 300 Opiates 300 Cannabinoids 50 Barbiturates 200 Benzodiazepine 200 Methadone 300 Amphetamines 1000 All positive findings are presumptive and unconfirmed. Confirmation of positive results are performed only at request of provider. Unconfirmed results must not be used for non-medical purposes (i.e. pre-employment and legal purposes) ID Date Data Source [id number] 10/22/2020 03:55:00 PM EDT [facility] Name Value Range Interpretation Code Description Data Laquita rce(s) Supporting Document(s) Color,Urine Yellow [facility] pital Clarity,Urine Clear Normal (applies to non-numeric re sults) [facility] Specific [place],Urine 1.001-1.030 Normal (applies to non- numeric results) [facility] PH,Urine 5.0-8.0 Normal (applies to non-numeric resul ts) [facility] Protein,Urine Negative Normal (applies to non-numeric re sults) [facility] Glucose,Urine (UA) Negative Normal (applies to non-numer ic results) [facility] Ketones,Urine 15 mg/dL Negative [facility] Blood,Urine Negative Normal (applies to non-numeric resu lts) [facility] Bilirubin,Urine Negative Normal (applies to non-numeric results) [facility] Urobilinogen,Urine Norm 0.2-1 Normal (applies to non-numer ic results) [facility] Leukocyte Esterase,Urine Negative Normal (applies to non -numeric results) [facility] Nitrite,Urine Negative Normal (applies to non-numeric re sults) [facility] RBC,Auto Urine 0-2 Normal (applies to non-numeric r esults) [facility] WBC Urine Auto 0-2 [facility] Casts,Hyaline,Urine Auto 0-2 Normal (applies to non -numeric results) [facility] Bacteria Urine Auto None Seen Normal (applies to non-nume lit results) [facility] Epithelial Cell Ur Auto None-Few Normal (applies to non- numeric results) [facility] ID Date Data Source [id number] 10/22/2020 03:03:00 PM EDT [facility] Name Value Range Interpretation Code Description Data Laquita rce(s) Supporting Document(s) Respiratory specimen severe acute respir atory syndrome coronavirus 2 (SARS-CoV-2) RNA Negative (qualifier value) [facility] This lab was ordered by [facility] and reported by [facility]. ID Date Data Source [id number] 10/22/2020 03:02:00 PM EDT [facility] Negative results should be treated as pr esumptive and, if inconsistent with clinical signs and symptoms or necessary for patient management, should be tested with different authorized or cleared molecular tests. Negative results do not preclude SARS-CoV-2 infection and should not be used as the sole basis for patient management decisions. Negative results should be considered in the context of a patients recent exposures, history and the presence of clinical signs and symptoms consistent with COVID-19. This test has not been FDA cleared or approved; this test has been authorized by FDA under an Emergency Use Authorization for use by laboratories certified under the Clinical Laboratory Improvement Amendments of 1988 (CLIA), 42 U.S.C. 263a, to perform moderate complexity/high complexity tests and at the Point of Care (POC), i.e., in patient care settings operating under a CLIA Certificate of Waiver, Certificate of Compliance, or Certificate of Accreditation. Factsheets for healthcare providers: https://www.fda.gov/media/792813/download Factsheets for patients: https://www.fda.gov/media/035138/download The ID NOW Instrument is a rapid molecular in vitro diagnostic test utilizing an isothermal nucleic acid amplification technology intended for the qualitative detection of nucleic acid from the SARS-CoV-2 viral RNA. THIS IS A STATE REPORTABLE COMMUNICABLE DISEASE. Manual entry verified by Frieda Snyder 10/22/20 1500 Test Performed By: [facility] [address] [place] [address] Director: Bassem Ferrara MD Name Value Range Interpretation Code Description Data [facility] rce(s) Supporting Document(s) ID Date Data Source [id number] 10/23/2020 12:46:00 AM EDT [facility] Name Value Range Interpretation Code Description Data [facility](s) Supporting Document(s) Hepatitis A Ab,IgG result Normal (applies to no n-numeric results) [facility] Result indicates no past exposure or imm unity to hepatitis A infection. REFERENCE VALUE Unvaccinated: Negative Vaccinated: Positive Test Performed by: [facility] [address] [place] [address] [employer]: Erick Scott M.D. Ph.D.; CLIA# [id number] ID Date Data Source [id number] 10/22/2020 11:16:00 PM EDT [facility] Value Range Interpretation Code Description Data Laquita rce(s) Supporting Document(s) Hepatitis A Ab,IgG result Normal (applies to no n-numeric results) [facility] Result indicates no past exposure or imm unity to hepatitis A infection. REFERENCE VALUE Unvaccinated: Negative Vaccinated: Positive Test Performed by: [facility] [address] [place] [address] [employer]: Erick Scott M.D. Ph.D.; CLIA# [id number] ID Date Data Source [id number] 10/21/2020 02:10:00 PM EDT [facility] Value Range Interpretation Code Description Data Laquita rce(s) Supporting Document(s) CPK result 141 U/L 39-308 Normal (applies to non-numeric resul ts) [facility] Test Performed By: [facility] [address] [place] [address] Director: Bassem Ferrara MD ID Date Data Source [id number] 10/21/2020 02:10:00 PM EDT [facility] Value Range Interpretation Code Description Data Laquita rce(s) Supporting Document(s) Hep Bs Ag result T-Test Nonreactive Normal (applies to non -numeric results) [facility] Test Performed By: [facility] [employer] [facility] [address] [place] [address] Director: Bassem Ferrara MD ID Date Data Source [id number] 10/21/2020 02:10:00 PM EDT [facility] Value Range Interpretation Code Description Data Laquita rce(s) Supporting Document(s) Hepatitis C Virus Ab result Nonreactive Norm al (applies to non-numeric results) [facility] Test Performed By: [facility] [address] [place] [address] Director: Bassem Ferrara MD ID Date Data Source [id number] 10/21/2020 02:10:00 PM EDT [facility] Name Value Range Interpretation Code Description Data Laquita rce(s) Supporting Document(s) Syphilis Serology result Nonreactive Normal (applies to non-numeric results) [facility] Test Performed By: [place] [address] Director: Bassem Ferrara MD ID Date Data Source [id number] 10/21/2020 01:21:00 PM EDT [facility] Value Range Interpretation Code Description Data Laquita rce(s) Supporting Document(s) Hep C Ab-T Test Nonreactive Normal (applies to non-numeric results) [facility] Test Performed By: [place] [address] Director: Bassem Ferrara MD ID Date Data Source [id number] 10/21/2020 01:21:00 PM EDT [facility] Value Range Interpretation Code Description Data Laquita rce(s) Supporting Document(s) Hep Bs Ag Result T-Test Nonreactive Normal (applies to non -numeric results) [facility] Test Performed By: [place] [address] Director: Bassem Ferrara MD ID Date Data Source [id number] 10/21/2020 01:21:00 PM EDT [facility] Value Range Interpretation Code Description Data [facility] rce(s) Supporting Document(s) Syphilis Serology Nonreactive Normal (applies to non-numer ic results) [facility] Test Performed By: [place] [address] Director: Bassem Ferrara MD ID Date Data Source [id number] 10/21/2020 11:43:00 AM EDT [facility] Value Range Interpretation Code Description Data Laquita rce(s) Supporting Document(s) CPK 141 U/L 39-308 Normal (applies to non-numeric resul ts) [facility] Test Performed By: [address] [address] Director: Bassem Ferrara MD ID Date Data Source [id number] 10/20/2020 08:54:00 PM EDT [facility] Name Value Range Interpretation Code Description Data Laquita rce(s) Supporting Document(s) Sodium 140 mmol/L 136-145 Normal (applies to non-numeric resul ts) [facility] [facility] Potassium 3.5-5.1 Normal (applies to non-numeric resul ts) [facility] Chloride 104 mmol/L 98-107 Normal (applies to non-numeric resul ts) [facility] Carbon Dioxide CO2 21-32 Normal (applies to non-numer ic results) [facility] Anion Gap 5.0-16.0 Normal (applies to non-numeric resul ts) [facility] BUN 19 mg/dL 7-18 Above high normal [facility] ospital Creatinine,Serum 0.8-1.5 Normal (applies to non-numeric results) [facility] GFR >60 Normal (applies to non-numeric results) [facility] Glucose Level 92 mg/dL 60-99 Normal (applies to non-numeric re sults) [facility] Reference range is only applicable when patient is fasting Note the following drug interference: Sulfasalazine Sulfapyridine Can see falsely depressed Can see falsely elevated result with up to 17% results with up to 11% decrease in measurement increase in measurement Recommend patients be collected for this test prior to administration of either drug. Calcium 8.5-10.1 Normal (applies to non-numeric resul ts) [facility] Bilirubin,Total 0.1-1.9 Normal (applies to non-numeric results) [facility] SGOT(AST) 20 U/L 15-37 Normal (applies to non-numeric resul ts) [facility] Note the following drug interference: Sulfasalazine Sulfapyridine Can see falsely depressed Can see falsely elevated result with up to 10% results with up to 10% decrease in measurement increase in measurement Recommend patients be collected for this test prior to administration of either drug. SGPT(ALT) 29 U/L 12-78 Normal (applies to non-numeric resul ts) [facility] Note the following drug interference: Sulfasalazine Sulfapyridine Can see falsely depressed Can see falsely elevated result with up to 29% results with up to 10% decrease in measurement increase in measurement Recommend patients be collected for this test prior to administration of either drug. Alkaline Phosphatase 80 U/L 38-126 Normal (applies to non-num jose roberto results) [facility] can increase Alkaline Phosp le vels up to 2 times the normal adult value. Normal values for children and adolescents are 2 to 3 times the normal adult value. Total Protein 6.0-8.2 Normal (applies to non-numeric re sults) [facility] Albumin Level 3.4-5.0 Normal (applies to non-numeric re sults) [facility] ID Date Data Source [id number] 10/20/2020 08:55:00 PM EDT [facility] Name Value Range Interpretation Code Description Data Laquita rce(s) Supporting Document(s) Magnesium 1.8-2.4 Normal (applies to non-numeric resul ts) [facility] ID Date Data Source [id number] 10/20/2020 08:55:00 PM EDT [facility] Name Value Range Interpretation Code Description Data Laquita rce(s) Supporting Document(s) Thyroid Stimulate Hormone TSH 0.358-3.74 No rmal (applies to non-numeric results) [facility] ID Date Data Source [id number] 10/20/2020 08:55:00 PM EDT [facility] Name Value Range Interpretation Code Description Data Laquita rce(s) Supporting Document(s) Phosphorus 2.5-4.9 Normal (applies to non-numeric resul ts) [facility] ID Date Data Source [id number] 10/20/2020 08:55:00 PM EDT [facility] Value Range Interpretation Code Description Data Laquita rce(s) Supporting Document(s) Bilirubin,Direct 0.05-0.20 Normal (applies to non-numeric results) [facility] ID Date Data Source [id number] 10/20/2020 08:54:00 PM EDT [facility] Name Value Range Interpretation Code Description Data Laquita rce(s) Supporting Document(s) Ethanol Less than 10.0 Normal (applies to non-numeric r esults) [facility] ID Date Data Source [id number] 10/20/2020 08:31:00 PM EDT [facility] Name Value Range Interpretation Code Description Data Laquita rce(s) Supporting Document(s) White Blood Count 3.5-10.5 Normal (applies to non-numeri c results) [facility] Red Blood Count 4.30-5.70 Normal (applies to non-numeric results) [facility] Hemoglobin 13.5-17.5 Normal (applies to non-numeric resul ts) [facility] Hematocrit 38.8-50.0 Normal (applies to non-numeric resul ts) [facility] Mean Corpuscular Volume 81.2-95.1 Normal (applies to non- numeric results) [facility] Mean Corpuscular Hgb 25.6-32.2 Normal (applies to non-num jose roberto results) [facility] Mean Corpuscular Hgb Conc 32.0-36.0 Normal (applies to no n-numeric results) [facility] Red Cell Distribution Width 11.8-15.6 Normal (appli es to non-numeric results) [facility] Platelet Count 312 x10 3/uL 150-450 Normal (applies to non-numeric results) [facility] Mean Platelet Volume 9.4-12.4 Normal (applies to non-num jose roberto results) [facility] Neutrophils% (Auto) 31.0-71.0 Normal (applies to non-nume lit results) [facility] Lymphocytes% (Auto) 20.0-55.0 Normal (applies to non-nume lit results) [facility] Monocytes% (Auto) 4.0-12.0 Normal (applies to non-numeri c results) [facility] Eosinophils% (Auto) 1.0-8.0 Normal (applies to non-nume lit results) [facility] Basophils% (Auto) 0.0-2.0 Normal (applies to non-numeri c results) [facility] Immature Granulocytes% (Auto) 0.0-2.0 Normal (arianna lies to non-numeric results) [facility] Neutrophils# (Auto) 1.50-6.20 Normal (applies to non-nume lit results) [facility] Lymphocytes# (Auto) 1.20-4.00 Normal (applies to non-nume lit results) [facility] Monocytes# (Auto) 0.00-0.90 Normal (applies to non-numeri c results) [facility] Eosinophils# (Auto) 0.00-0.50 Normal (applies to non-nume lit results) [facility] Basophils# (Auto) 0.00-0.20 Normal (applies to non-numeri c results) [facility] Immature Granulocytes# (Auto) 0.00-7.00 No rmal (applies to non-numeric results) [facility] ID Date Data Source [id number] 10/21/2020 04:43:00 PM EDT [facility] Name Value Range Interpretation Code Description Data Laquita rce(s) Supporting Document(s) Chlamydia,Urine result Negative Normal (applies to non-n umeric results) [facility] Test Performed By: [facility] [address] [place] [address] Director: Bassem Ferrara MD . GC Urine result Negative Normal (applies to non-numeric results) [facility] Test Performed By: [facility] [address] [place] [address] Director: Bassem Ferrara MD . Methodology: Second generation nucleic acid amplification. ID Date Data Source [id number] 10/21/2020 04:11:00 PM EDT [facility] Name Value Range Interpretation Code Description Data Laquita rce(s) Supporting Document(s) Chlamydia,Urine Negative Normal (applies to non-numeric results) [facility] Test Performed By: [facility] [address] [place] [address] Director: Bassem Ferrara MD . GC Urine Negative Normal (applies to non-numeric resul ts) [facility] [address] [place] [address] Director: Bassem Ferrara MD . Methodology: Second generation nucleic acid amplification. ID Date Data Source [id number] 10/20/2020 11:44:00 PM EDT [facility] Collected By: Nurse Initials: TK Time Collected: 1899 Name Value Range Interpretation Code Description Data Laquita rce(s) Supporting Document(s) Color,Urine Colorl-Dk Y Normal (applies to non-numeric res ults) [facility] Clarity,Urine Clear Normal (applies to non-numeric re sults) [facility] Specific [place],Urine 1.005-1.030 Normal (applies to non- numeric results) [facility] pH,Urine 5.0-8.0 Normal (applies to non-numeric resul ts) [facility] Protein,Urine Negative Normal (applies to non-numeric re sults) [facility] Glucose,Urine Negative Normal (applies to non-numeric re sults) [facility] Ketones,Urine Negative Normal (applies to non-numeric re sults) [facility] Blood,Urine Negative Normal (applies to non-numeric resu lts) [facility] Bilirubin,Urine Negative Normal (applies to non-numeric results) [facility] Urobilinogen,Urine 0.2-1.0 Normal (applies to non-numer ic results) [facility] Leukocyte Esterase,Urine Negative Normal (applies to non -numeric results) [facility] Nitrite,Urine Negative Normal (applies to non-numeric re sults) [facility] ID Date Data Source [id number] 10/20/2020 11:43:00 PM EDT [facility] Name Value Range Interpretation Code Description Data Laquita rce(s) Supporting Document(s) UDS Benzodiazepines Screen Negative Normal (applies to n on-numeric results) [facility] UDS Cocaine Screen Negative Normal (applies to non-numer ic results) [facility] UDS Ampetamine Screen Negative Normal (applies to non-nu meric results) [facility] UDS Cannabinoids Screen Negative Normal (applies to non- numeric results) [facility] UDS Opiates Screen Negative Normal (applies to non-numer ic results) [facility] UDS Barbiturates Screen Negative Normal (applies to non- numeric results) [facility] Threshold Levels Benzodiazepine 200 ng/mL Cocaine 300 ng/mL Amphetamines 1000 ng/mL Cannabinoids (THC) 50 ng/mL Opiates 300 ng/mL Barbiturates 200 ng/mL All positive findings are presumptive and unconfirmed. Confirmation of positive results are performed only at request of provider. Unconfirmed results must not be used for non-medical purposes (i.e. preemployment and legal purposes) ID Date Data Source [id number] 10/20/2020 04:25:00 PM EDT [facility] Name Value Range Interpretation Code Description Data Laquita rce(s) Supporting Document(s) Respiratory specimen severe acute respir atory syndrome coronavirus 2 (SARS-CoV-2) RNA Negative (qualifier value) [facility] This lab was ordered by [facility] and reported by . ID Date Data Source [id number] 10/20/2020 04:48:00 PM EDT [facility] First test? NOEmployed in healthcare? NOSymptomatic per CDC? NOHospitalized? NOICU? NOResident in congregated care? ex residential, [facility] NO? NO Name Value Range Interpretation Code Description Data Laquita rce(s) Supporting Document(s) SARS-CoV-2 RNA Negative Normal (applies to non-numeric r esults) [facility] Negative results should be treated as pr esumptive and, if inconsistent with clinical signs and symptoms or necessary for patient management, should be tested with different authorized or cleared molecular tests. Negative results do not preclude SARS-CoV-2 infection and should not be used as the sole basis for patient management decisions. Negative results should be considered in the context of a patient???s recent exposures, history and the presence of clinical signs and symptoms consistent with COVID-19. This test has not been FDA cleared or approved; this test has been authorized by FDA under an Emergency Use Authorization for use by laboratories certified under the Clinical Laboratory Improvement Amendments of 1988 (CLIA), 42 U.S.C. ???263a, to perform moderate complexity/high complexity tests and at the Point of Care (POC), i.e., in patient care settings operating under a CLIA Certificate of Waiver, Certificate of Compliance, or Certificate of Accreditation. Factsheets for healthcare providers: https://www.fda.gov/media/076968/download Factsheets for patients: https://www.fda.gov/media/283376/download The ID NOW Instrument is a rapid molecular in vitro diagnostic test utilizing an isothermal nucleic acid amplification technology intended for the qualitative detection of nucleic acid from the SARS-CoV-2 viral RNA. THIS IS A STATE REPORTABLE COMMUNICABLE DISEASE. Manual entry verified by Liza Murray 10/20/20 1646 Procedure Social History Code Duration Value Status Description Data Source(s ) Smoking 02/13/2021 12:00:00 AM EDT Unknown if ever smoked comp leted Unknown if ever smoked [facility] ([facility]) Smoking 02/12/2021 12:00:00 AM EDT Unknown if ever smoked comp leted Unknown if ever smoked [facility] ([facility]) Smoking 02/09/2021 12:00:00 AM EDT Unknown if ever smoked comp leted Unknown if ever smoked [facility] ([facility]) Smoking 12/11/2020 12:00:00 PM EDT Smokes tobacco daily (findi ng) completed Current Every Day Smoker [facility] ([facility]) Vital Signs ID Date Data Source UNK Name Value Range Interpretation Code Description Data Source(s) Heart rate 66 /min 66 /min [facility] ([facility]) Systolic blood pressure 122 mm[Hg] 122 mm[Hg] M EDENT ([facility]) Body weight 149.00 [lb_av] 149.00 [lb_av] MEDEN T ([facility]) Diastolic blood pressure 78 mm[Hg] 78 mm[Hg] [facility] ([facility]) Respiratory rate 16.0 /MIN 16.0 /MIN [facility] ([facility]) Systolic blood pressure 119.0 MM[HG] 119.0 MM[H G] [facility] ([facility]) Diastolic blood pressure 53.0 MM[HG] 53.0 MM[HG ] [facility] ([facility]) Heart rate 94.0 /MIN 94.0 /MIN [facility] ([facility]) Body temperature 97.3 [DEGF] 97.3 [DEGF] NETSMA RT ([facility]) Body temperature 36.3 EULOGIO 36.3 EULOGIO [facility] ([facility]) Heart rate 67.0 /MIN 67.0 /MIN [facility] ([facility]) Systolic blood pressure 130.0 MM[HG] 130.0 MM[H G] [facility] ([facility]) Diastolic blood pressure 72.0 MM[HG] 72.0 MM[HG ] [facility] ([facility]) Systolic blood pressure 107.0 MM[HG] 107.0 MM[H G] [facility] ([facility]) Diastolic blood pressure 69.0 MM[HG] 69.0 MM[HG ] [facility] ([facility]) Body temperature 97.6 [DEGF] 97.6 [DEGF] [facility] RT ([facility]) Body temperature 36.4 EULOGIO 36.4 EULOGIO [facility] ([facility]) Heart rate 51.0 /MIN 51.0 /MIN [facility] ([facility]) Body temperature 97.5 [DEGF] 97.5 [DEGF] [facility] RT ([facility]) Body temperature 36.4 EULOGIO 36.4 EULOGIO [facility] ([facility]) Heart rate 68.0 /MIN 68.0 /MIN [facility] ([facility]) Respiratory rate 16.0 /MIN 16.0 /MIN [facility] ([facility]) Systolic blood pressure 128.0 MM[HG] 128.0 MM[H G] [facility] ([facility]) Diastolic blood pressure 82.0 MM[HG] 82.0 MM[HG ] [facility] ([facility]) Body temperature 98.0 [DEGF] 98.0 [DEGF] [facility]MA RT ([facility]) Body temperature 36.7 EULOGIO 36.7 EULOGIO [facility] ([facility]) Heart rate 61.0 /MIN 61.0 /MIN [facility] ([facility]) Respiratory rate 16.0 /MIN 16.0 /MIN [facility] ([facility]) Systolic blood pressure 117.0 MM[HG] 117.0 MM[H G] [facility] ([facility]) Diastolic blood pressure 75.0 MM[HG] 75.0 MM[HG ] [facility] ([facility]) Diastolic blood pressure 57.0 MM[HG] 57.0 MM[HG ] [facility] ([facility]) Heart rate 71.0 /MIN 71.0 /MIN [facility] ([facility]) Body temperature 98.0 [DEGF] 98.0 [DEGF] [facility] RT ([facility]) Body temperature 36.7 EULOGIO 36.7 EULOGIO [facility] ([facility]) Systolic blood pressure 93.0 MM[HG] 93.0 MM[HG] [facility] ([facility]) Systolic blood pressure 111.0 MM[HG] 111.0 MM[H G] [facility] ([facility]) Heart rate 62.0 /MIN 62.0 /MIN [facility] ([facility]) Respiratory rate 16.0 /MIN 16.0 /MIN [facility] ([facility]) Diastolic blood pressure 71.0 MM[HG] 71.0 MM[HG ] [facility] ([facility]) Heart rate 102.0 /MIN 102.0 /MIN [facility] ([facility]) Body temperature 37.1 EULOGIO 37.1 EULOGIO [facility] ([facility]) Systolic blood pressure 148.0 MM[HG] 148.0 MM[H G] [facility] ([facility]) Diastolic blood pressure 64.0 MM[HG] 64.0 MM[HG ] [facility] ([facility]) Respiratory rate 18.0 /MIN 18.0 /MIN [facility] ([facility]) Body temperature 98.7 [DEGF] 98.7 [DEGF] [facility] RT ([facility]) Heart rate 70.0 /MIN 70.0 /MIN [facility] ([facility]) Respiratory rate 16.0 /MIN 16.0 /MIN [facility] ([facility]) Systolic blood pressure 102.0 MM[HG] 102.0 MM[H G] [facility] ([facility]) Diastolic blood pressure 56.0 MM[HG] 56.0 MM[HG ] [facility] ([facility]) Body temperature 96.0 [DEGF] 96.0 [DEGF] [facility]MA RT ([facility]) Body temperature 35.6 EULOGIO 35.6 EULOGIO [facility] ([facility]) Heart rate 96.0 /MIN 96.0 /MIN [facility] ([facility]) Respiratory rate 14.0 /MIN 14.0 /MIN [facility] ([facility]) Systolic blood pressure 143.0 MM[HG] 143.0 MM[H G] [facility] ([facility]) Diastolic blood pressure 80.0 MM[HG] 80.0 MM[HG ] [facility] ([facility]) Diastolic blood pressure 75.0 MM[HG] 75.0 MM[HG ] [facility] ([facility]) Body temperature 98.4 [DEGF] 98.4 [DEGF] [facility]MA RT ([facility]) Body temperature 36.9 EULOGIO 36.9 EULOGIO [facility] ([facility]) Heart rate 91.0 /MIN 91.0 /MIN [facility] ([facility]) Respiratory rate 16.0 /MIN 16.0 /MIN [facility] ([facility]) Systolic blood pressure 124.0 MM[HG] 124.0 MM[H G] [facility] ([facility]) Body temperature 97.7 [DEGF] 97.7 [DEGF] [facility] RT ([facility]) Body temperature 36.5 EULOGIO 36.5 EULOGIO [facility] ([facility]) Heart rate 55.0 /MIN 55.0 /MIN [facility] ([facility]) Respiratory rate 12.0 /MIN 12.0 /MIN [facility] ([facility]) Systolic blood pressure 114.0 MM[HG] 114.0 MM[H G] [facility] ([facility]) Diastolic blood pressure 61.0 MM[HG] 61.0 MM[HG ] [facility] ([facility]) Heart rate 75.0 /MIN 75.0 /MIN [facility] ([facility]) Body temperature 36.2 EULOGIO 36.2 EULOGIO [facility] ([facility]) Body temperature 97.1 [DEGF] 97.1 [DEGF] [facility] RT ([facility]) Systolic blood pressure 124.0 MM[HG] 124.0 MM[H G] [facility] ([facility]) Diastolic blood pressure 84.0 MM[HG] 84.0 MM[HG ] [facility] ([facility]) Body temperature 36.5 EULOGIO 36.5 EULOGIO [facility] ([facility]) Heart rate 77.0 /MIN 77.0 /MIN [facility] ([facility]) Respiratory rate 18.0 /MIN 18.0 /MIN [facility] ([facility]) Systolic blood pressure 115.0 MM[HG] 115.0 MM[H G] [facility] ([facility]) Diastolic blood pressure 67.0 MM[HG] 67.0 MM[HG ] [facility] ([facility]) Body temperature 97.7 [DEGF] 97.7 [DEGF] NETSMA RT ([facility]) Body temperature 97.1 [DEGF] 97.1 [DEGF] NETSMA RT ([facility]) Body temperature 36.2 EULOGIO 36.2 EULOGIO [facility] ([facility]) Heart rate 66.0 /MIN 66.0 /MIN [facility] ([facility]) Systolic blood pressure 109.0 MM[HG] 109.0 MM[H G] [facility] ([facility]) Diastolic blood pressure 64.0 MM[HG] 64.0 MM[HG ] [facility] ([facility]) Body temperature 36.6 EULOGIO 36.6 EULOGIO [facility] ([facility]) Heart rate 69.0 /MIN 69.0 /MIN [facility] ([facility]) Respiratory rate 16.0 /MIN 16.0 /MIN [facility] ([facility]) Oxygen saturation in Arterial blood by Pulse oximetry 98.0 % 98.0 % [facility] ([facility]) Systolic blood pressure 128.0 MM[HG] 128.0 MM[H G] [facility] ([facility]) Diastolic blood pressure 76.0 MM[HG] 76.0 MM[HG ] [facility] ([facility]) Body temperature 97.8 [DEGF] 97.8 [DEGF] NETSMA RT ([facility]) Body temperature 36.4 EULOGIO 36.4 EULOGIO [facility] ([facility]) Body temperature 97.5 [DEGF] 97.5 [DEGF] NETSMA RT ([facility]) Heart rate 74.0 /MIN 74.0 /MIN [facility] ([facility]) Respiratory rate 18.0 /MIN 18.0 /MIN [facility] ([facility]) Oxygen saturation in Arterial blood by Pulse oximetry 99.0 % 99.0 % [facility] ([facility]) Systolic blood pressure 119.0 MM[HG] 119.0 MM[H G] [facility] ([facility]) Diastolic blood pressure 72.0 MM[HG] 72.0 MM[HG ] [facility] ([facility]) Body temperature 97.5 [DEGF] 97.5 [DEGF] NETSMA RT ([facility]) Body temperature 36.4 EULOGIO 36.4 EULOGIO [facility] ([facility]) Heart rate 59.0 /MIN 59.0 /MIN [facility] ([facility]) Systolic blood pressure 115.0 MM[HG] 115.0 MM[H G] [facility] ([facility]) Diastolic blood pressure 57.0 MM[HG] 57.0 MM[HG ] [facility] ([facility]) Body temperature 98.1 [DEGF] 98.1 [DEGF] NETSMA RT ([facility]) Body temperature 36.7 EULOGIO 36.7 EULOGIO [facility] ([facility]) Heart rate 113.0 /MIN 113.0 /MIN [facility] ([facility]) Respiratory rate 18.0 /MIN 18.0 /MIN [facility] ([facility]) Systolic blood pressure 132.0 MM[HG] 132.0 MM[H G] [facility] ([facility]) Diastolic blood pressure 80.0 MM[HG] 80.0 MM[HG ] [facility] ([facility]) Diastolic blood pressure 72.0 MM[HG] 72.0 MM[HG ] [facility] ([facility]) Oxygen saturation in Arterial blood by Pulse oximetry 98.0 % 98.0 % [facility] ([facility]) Systolic blood pressure 129.0 MM[HG] 129.0 MM[H G] [facility] ([facility]) Body temperature 98.8 [DEGF] 98.8 [DEGF] NETSMA RT ([facility]) Body temperature 37.1 EULOGIO 37.1 EULOGIO [facility] ([facility]) Heart rate 89.0 /MIN 89.0 /MIN [facility] ([facility]) Respiratory rate 18.0 /MIN 18.0 /MIN [facility] ([facility]) Body temperature 97.5 [DEGF] 97.5 [DEGF] NETSMA RT ([facility]) Body temperature 36.4 EULOGIO 36.4 EULOGIO [facility] ([facility]) Heart rate 57.0 /MIN 57.0 /MIN [facility] ([facility]) Respiratory rate 16.0 /MIN 16.0 /MIN [facility] ([facility]) Systolic blood pressure 105.0 MM[HG] 105.0 MM[H G] [facility] ([facility]) Diastolic blood pressure 58.0 MM[HG] 58.0 MM[HG ] [facility] ([facility]) Body temperature 97.7 [DEGF] 97.7 [DEGF] NETSMA RT ([facility]) Body temperature 36.5 EULOGIO 36.5 EULOGIO [facility] ([facility]) Heart rate 64.0 /MIN 64.0 /MIN [facility] ([facility]) Respiratory rate 16.0 /MIN 16.0 /MIN [facility] ([facility]) Systolic blood pressure 131.0 MM[HG] 131.0 MM[H G] [facility] ([facility]) Diastolic blood pressure 72.0 MM[HG] 72.0 MM[HG ] [facility] ([facility]) Body temperature 98.0 [DEGF] 98.0 [DEGF] NETSMA RT ([facility]) Body temperature 36.7 EULOGIO 36.7 EULOGIO [facility] ([facility]) Heart rate 77.0 /MIN 77.0 /MIN [facility] ([facility]) Respiratory rate 16.0 /MIN 16.0 /MIN [facility] ([facility]) Oxygen saturation in Arterial blood by Pulse oximetry 99.0 % 99.0 % [facility] ([facility]) Systolic blood pressure 125.0 MM[HG] 125.0 MM[H G] [facility] ([facility]) Diastolic blood pressure 71.0 MM[HG] 71.0 MM[HG ] [facility] ([facility]) Body height 170.2 cm 170.2 cm [facility] ([facility]) Body weight 65.9 KG 65.9 KG [facility] ([facility]) Body mass index (BMI) [Ratio] 22.7 22.7 [facility] ([facility]) ID Date Data Source [id number] 02/10/2021 08:07:00 AM EDT [facility] Name Value Range Interpretation Code Description Data Source(s) Weight Measurement Method 1 1 [facility] [facility] Weight (Calculated Kilograms) 65.77 65.77 [facility] Weight 2592 2592 [facility] Temperature Source 7 7 [facility] Temperature 97.7 97.7 [facility] Respiratory Effort 1 1 [facility] Respiratory Rate 16 16 [facility] Pulse Assessment Method 4 4 [facility] Pulse Rate 58 58 [facility] Height (Calculated Centimeters) 170.18 170. 18 [facility] Height 67 67 [facility] Blood Pressure 103/65 103/65 [facility] Body Mass Index (BMI) 22.7 22.7 [facility] Weight Measurement Method 1 1 [facility] Weight (Calculated Kilograms) 65.77 65.77 [facility] Weight 2592 2592 [facility] Temperature Source 7 7 [facility] Temperature 97.7 97.7 [facility] Respiratory Effort 1 1 [facility] Respiratory Rate 16 16 [facility] Pulse Assessment Method 4 4 [facility] Pulse Rate 58 58 [facility] Height (Calculated Centimeters) 170.18 170. 18 [facility] Height 67 67 [facility] Blood Pressure 103/65 103/65 [facility] Body Mass Index (BMI) 22.7 22.7 [facility] Weight Measurement Method 1 1 [facility] Weight (Calculated Kilograms) 65.77 65.77 [facility] Weight 2592 2592 [facility] Temperature Source 7 7 [facility] Temperature 97.4 97.4 [facility] Respiratory Effort 1 1 [facility] Respiratory Rate 16 16 [facility] Pulse Assessment Method 4 4 [facility] Pulse Rate 65 65 [facility] Height (Calculated Centimeters) 170.18 170. 18 [facility] Height 67 67 [facility] Blood Pressure 111/69 111/69 [facility] Body Mass Index (BMI) 22.7 22.7 [facility] Weight Measurement Method 1 1 [facility] Weight (Calculated Kilograms) 65.77 65.77 [facility] Weight 2320 2320 [facility] Temperature Source 7 7 [facility] Temperature 97.8 97.8 [facility] Respiratory Effort 1 1 [facility] Respiratory Rate 16 16 [facility] Pulse Assessment Method 4 4 [facility] Pulse Rate 64 64 [facility] Height (Calculated Centimeters) 170.18 170. 18 [facility] Height 67 67 [facility] Blood Pressure 108/71 108/71 [facility] Body Mass Index (BMI) 22.7 22.7 [facility] Weight (Calculated Kilograms) 63.96 63.96 [facility] Height (Calculated Centimeters) 170.18 170. 18 [facility] Body Mass Index (BMI) 22.1 22.1 [facility] Weight (Calculated Kilograms) 63.96 63.96 [facility] Height (Calculated Centimeters) 170.18 170. 18 [facility] Body Mass Index (BMI) 22.1 22.1 [facility] ID Date Data Source [id number] 01/27/2021 02:22:00 PM EDT [facility] Name Value Range Interpretation Code Description Data Source(s) Weight Measurement Method 1 1 [facility] Weight (Calculated Kilograms) 63.96 63.96 [facility] Weight 2256 2256 [facility] Temperature Source 7 7 [facility] Temperature 97.6 97.6 [facility] Respiratory Effort 1 1 [facility] Respiratory Rate 16 16 [facility] Pulse Assessment Method 4 4 [facility] Pulse Rate 68 68 [facility] Height (Calculated Centimeters) 170.18 170. 18 [facility] Height 67 67 [facility] Blood Pressure 127/64 127/64 [facility] Body Mass Index (BMI) 22.1 22.1 [facility] Weight Measurement Method 1 1 [facility] Weight (Calculated Kilograms) 63.96 63.96 [facility] Weight 2256 2256 [facility] Temperature Source 7 7 [facility] Temperature 97.6 97.6 [facility] Respiratory Effort 1 1 [facility] Respiratory Rate 16 16 [facility] Pulse Assessment Method 4 4 [facility] Pulse Rate 68 68 [facility] Height (Calculated Centimeters) 170.18 170. 18 [facility] Height 67 67 [facility] Blood Pressure 127/64 127/64 [facility] Body Mass Index (BMI) 22.1 22.1 [facility] Weight Measurement Method 1 1 [facility] Weight (Calculated Kilograms) 63.96 63.96 [facility] Weight 2256 2256 [facility] Temperature Source 7 7 [facility] Temperature 97.6 97.6 [facility] Respiratory Effort 1 1 [facility] Respiratory Rate 16 16 [facility] Pulse Assessment Method 4 4 [facility] Pulse Rate 57 57 [facility] Height (Calculated Centimeters) 170.18 170. 18 [facility] Height 67 67 [facility] Blood Pressure 113/72 113/72 [facility] Body Mass Index (BMI) 22.1 22.1 [facility] Weight Measurement Method 1 1 [facility] Weight (Calculated Kilograms) 63.96 63.96 [facility] Weight 2256 2256 [facility] Temperature Source 7 7 [facility] Temperature 97.0 97.0 [facility] Respiratory Effort 1 1 [facility] Respiratory Rate 15 15 [facility] Pulse Assessment Method 4 4 [facility] Pulse Rate 57 57 [facility] Height (Calculated Centimeters) 170.18 170. 18 [facility] Height 67 67 [facility] Blood Pressure 113/72 113/72 [facility] Body Mass Index (BMI) 22.1 22.1 [facility] ID Date Data Source [id number] 01/30/2021 11:37:00 AM EDT [facility] spital Name Value Range Interpretation Code Description Data Source(s) Weight Measurement Method 1 1 [facility] Weight (Calculated Kilograms) 65.23 65.23 [facility]00.8 [facility]8 [facility] 7 7 [facility] Temperature 98.1 98.1 [facility] spital Respiratory Effort 1 1 [facility] Respiratory Rate 14 14 [facility] Pulse Assessment Method 4 4 [facility] Pulse Rate 60 60 [facility] pital Height (Calculated Centimeters) 170.18 170. 18 [facility] Height 67 67 [facility] pital Blood Pressure 103/68 103/68 [facility] Body Mass Index (BMI) [address] [place] [address] Weight Measurement Method 1 1 [facility] Weight (Calculated Kilograms) 65.23 65.23 [facility] Weight 2300.8 2300.8 [facility] pital Temperature Source 7 7 [facility] Temperature 98.1 98.1 [facility] 1 1 [facility] Respiratory Rate 14 14 [facility] Pulse Assessment Method 4 4 [facility] Pulse Rate 60 60 [facility] pital Height (Calculated Centimeters) 170.18 170. 18 [facility] Height 67 67 [facility] pital Blood Pressure 103/68 103/68 [facility] Body Mass Index (BMI) 22.[address] Weight Measurement Method 1 1 [facility] Weight (Calculated Kilograms) 65.23 65.23 [facility] Weight 2300.8 2300.8 [facility] pital Temperature Source 7 7 [facility] Temperature 98.1 98.1 [facility] Respiratory Effort 1 1 [facility] Respiratory Rate 14 14 [facility] Pulse Assessment Method 4 4 [facility] Pulse Rate 60 60 [facility] pital Height (Calculated Centimeters) 170.18 170. 18 [facility] Height 67 67 [facility] pital Blood Pressure 103/68 103/68 [facility] Body Mass Index (BMI) 22.[address] Weight Measurement Method 1 1 [facility] Weight (Calculated Kilograms) 65.23 65.23 [facility] Weight 2300.8 2300.8 [facility] pital Temperature Source 7 7 [facility] Temperature 97.2 97.2 [facility] Respiratory Effort 1 1 [facility] Respiratory Rate 14 14 [facility] Pulse Assessment Method 1 1 [facility] Pulse Rate 77 77 [facility] pital Height (Calculated Centimeters) 170.18 170. 18 [facility] Height 67 67 [facility] pital Blood Pressure 120/68 120/68 [facility] Body Mass Index (BMI) 22.5 22.5 [facility] Weight Measurement Method 1 1 [facility] Weight (Calculated Kilograms) 65.23 65.23 [facility] Weight 2300.8 2300.8 [facility] pital Temperature Source 7 7 [facility] Temperature 97.2 97.2 [facility] spital Respiratory Effort 1 1 [facility] Respiratory Rate 14 14 [facility] Pulse Assessment Method 4 4 [facility] Pulse Rate 77 77 [facility] pital Height (Calculated Centimeters) 170.18 170. 18 [facility] 67 67 [facility] 120/68 120/68 [facility] Body Mass Index (BMI) 22.5 225 [facility]
[2021-03-28] MEDS ORDERED: RALTEGRAVIR 400 MG TAB (ISENTRESS) PO ONE (08:00)
[2021-03-28] MEDS ORDERED: TRUVADA 200MG/300MG TABLET PO ONE (08:00)
[2021-03-28] MEDS ORDERED: HEPATITIS B VACCINE 20MCG/ML 1ML SYRINGE (ADULT DOSE) IM ONE (08:15)
[2021-03-28] MEDS ORDERED: HEPATITIS B IMMUNE GLOBULIN 5ML INJ IM ONE (08:15)
[2021-03-28] MEDS ORDERED: TETANUS/DIPHTHERIA TOX ADSORB ADULT 0.5ML SYR/VIAL (90714) IM ONE (08:15)
[2021-03-28 08:35] VITALS: BP 126/83
[2021-03-28] MEDS ORDERED: EMTR1TAB16 PO (08:41)
[2021-03-28 11:47] LABS: CK-MB VALUE MASS 3.3 NG/ML (<3.6); MB/CK RELATIVE INDEX 1.24 (< OR =4)
[2021-03-30 10:18] LABS: HEPATITIS B SURFACE ANTIBODY NEGATIVE (POSITIVE)
[2021-03-30 10:28] LABS: HEPATITIS B SURFACE ANTIGEN NEGATIVE (NEGATIVE)
[2021-03-30 10:56] LABS: HEPATITIS C VIRUS ABY INDEX 0.1 INDEX (<0.8)
[2021-03-30 10:57] LABS: HEPATITIS B CORE ANTIBODY IGM NEGATIVE (NEGATIVE); HIV SCREEN CENTAUR EXPOSED NEGATIVE (NEGATIVE)
== END 2021-03-28 09:12 | disposition home or self-care (01) ==
LOC: M ED 03:25
DX: Z77.21 Contact with and (suspected) exposure to potentially hazardous body fluids (principal); E87.5 Hyperkalemia; R94.4 Abnormal results of kidney function studies; W46.1XXA Contact with contaminated hypodermic needle, initial encounter; F17.200 Nicotine dependence, unspecified, uncomplicated; Y92.009 Unspecified place in unspecified non-institutional (private) residence as the place of occurrence of the external cause; Y93.G1 Activity, food preparation and clean up; Y99.9 Unspecified external cause status

== ENCOUNTER 2021-07-11 14:21 | Emergency (ER) | payer MEDICAID, MEDICARE ==
[~2021-07-11] VITALS: Ht 170.2 cm; Wt 68.2 kg
[~2021-07-11 14:21] MED LIST changes: +EMTR1TAB16 PO; -RALTEGRAVIR 400 MG TAB (ISENTRESS) PO SCH; -TRUVADA 200MG/300MG TABLET PO SCH
[2021-07-11] MEDS ORDERED: NS 1,000 ML IV ONE (15:55)
[2021-07-11 16:20] LABS: BASO % 0.2 % (0.0-1.0); EOS # 0.1 10^3/uL (0.0-0.5); EOS % 0.9 % (0.0-3.0); LYMPH # 0.7 10^3/uL (1.5-5.0); LYMPH % 5.3 % (24.0-44.0); MEAN CORPUSCULAR HEMOGLOBIN 29.7 pg (27.0-33.0); MEAN CORPUSCULAR HGB CONC 33.3 g/dl (32.0-36.5); MONO # 0.9 10^3/uL (0.0-0.8); MONO % 6.3 % (2.0-8.0); NEUTROPHILS # 11.7 10^3/uL (1.5-8.5); NEUTROPHILS % 86.9 % (36.0-66.0); PLATELET COUNT, AUTOMATED 297 10^3/uL (150-450); RED BLOOD COUNT 4.72 10^6/uL (4.30-6.10); WHITE BLOOD COUNT 13.5 10^3/uL (4.0-10.0)
[2021-07-11 16:43] LABS: ALBUMIN 4.1 GM/DL (3.2-5.2); ALT/SGPT 32 U/L (12-78); BILIRUBIN,DIRECT 0.2 MG/DL (0.0-0.2); BILIRUBIN,TOTAL 0.7 MG/DL (0.2-1.0); LIPASE 180 U/L (73-393)
[2021-07-11 17:28] LABS: RSV AMPLIFICATION NEGATIVE (NEGATIVE)
[2021-07-11] MEDS ORDERED: ACETAMINOPHEN 325 MG TAB PO ONE (18:00)
[2021-07-11 18:05] VITALS: BP 118/76
[2021-07-11] MEDS ORDERED: LIDOCAINE 1% SDV 5ML VIAL DILUENT ONE (18:25)
[2021-07-11] MEDS ORDERED: AZITHROMYCIN 250MG TABLET PO ONE (18:25)
[2021-07-11] MEDS ORDERED: cefTRIAXone SOD 1GM VIAL (J0696 PER 250MG) IM ONE (18:25)
[2021-07-11 18:52] LABS: GC DNA AMPLIFICATION NEGATIVE (NEGATIVE)
[2021-07-13 08:43] LABS: HEPATITIS B SURFACE ANTIBODY POSITIVE (POSITIVE)
[2021-07-13 08:54] LABS: HEPATITIS B SURFACE ANTIGEN NEGATIVE (NEGATIVE)
[2021-07-13 09:20] LABS: HEPATITIS C VIRUS ABY INDEX 0.2 INDEX (<0.8)
[2021-07-13 09:22] LABS: HIV 1&2 SCREEN CENTAUR NEGATIVE (NEGATIVE)
== END 2021-07-11 19:06 | disposition home or self-care (01) ==
LOC: M ED 14:21
DX: R10.9 Unspecified abdominal pain (principal); F41.8 Other specified anxiety disorders; K21.9 Gastro-esophageal reflux disease without esophagitis; F17.200 Nicotine dependence, unspecified, uncomplicated; F11.10 Opioid abuse, uncomplicated; Z79.899 Other long term (current) drug therapy
CPT/HCPCS: 70450; 70486; 74177; 80047; 80076; 81001; 83605; 83690; 85025; 86706; 86780; 86803; 87340; 87389; 87631; 87661; 96360; 96361; 96372; 99284; J0696

== ENCOUNTER 2021-07-31 02:22 | Emergency (ER) | payer MEDICARE, MEDICAID ==
[~2021-07-31] VITALS: Ht 170.2 cm; Wt 67.0 kg
[2021-07-31 02:22] VITALS: BP 130/78
== END 2021-07-31 06:06 | disposition left against medical advice (07) ==
LOC: M ED 02:22
DX: R10.9 Unspecified abdominal pain (principal); F12.20 Cannabis dependence, uncomplicated; F17.210 Nicotine dependence, cigarettes, uncomplicated

== ENCOUNTER 2021-11-29 16:43 | Emergency (ER) | payer MEDICARE, MEDICAID ==
[~2021-11-29] VITALS: Ht 167.6 cm; Wt 65.0 kg
[2021-11-29] MEDS ORDERED: QUET1TAB17 (16:50)
[2021-11-29] MEDS ORDERED: BUPR1FIL (16:50)
[2021-11-29] MEDS ORDERED: MORPHINE 4 MG/ML 1ML VIAL/SYRINGE IV PRN (17:25)
[2021-11-29] MEDS ORDERED: ONDANSETRON 4MG 2ML VIAL IV ONE (17:25)
[2021-11-29] MEDS ORDERED: ISOVUE-370 76% 100ML VIAL As Ordered ONE (17:59)
[2021-11-29 18:02] LABS: BASO # 0.1 10^3/uL (0.0-0.2); BASO % 0.4 % (0.0-1.0); EOS # 0.5 10^3/uL (0.0-0.5); EOS % 3.5 % (0.0-3.0); HEMATOCRIT 38.9 % (42.0-52.0); HEMOGLOBIN 12.8 g/dl (13.5-17.5); LYMPH # 2.2 10^3/uL (1.5-5.0); LYMPH % 14.2 % (24.0-44.0); MEAN CORPUSCULAR HEMOGLOBIN 29.5 pg (27.0-33.0); MEAN CORPUSCULAR HGB CONC 32.9 g/dl (32.0-36.5); MEAN CORPUSCULAR VOLUME 89.6 fl (80.0-96.0); MONO # 1.4 10^3/uL (0.0-0.8); MONO % 9.3 % (2.0-8.0); NEUTROPHILS # 11.1 10^3/uL (1.5-8.5); NEUTROPHILS % 72.1 % (36.0-66.0); PLATELET COUNT, AUTOMATED 301 10^3/uL (150-450); RED BLOOD COUNT 4.34 10^6/uL (4.30-6.10); WHITE BLOOD COUNT 15.3 10^3/uL (4.0-10.0)
[2021-11-29 18:35] LABS: RSV AMPLIFICATION NEGATIVE (NEGATIVE)
[2021-11-29] MEDS ORDERED: DALBAVANCIN 1,500 MG in D5W 250 ML IV ONE (18:50)
[2021-11-29 21:17] VITALS: BP 134/87
== END 2021-11-29 21:42 | disposition home or self-care (01) ==
LOC: M ED 16:43
DX: L03.211 Cellulitis of face (principal); F17.200 Nicotine dependence, unspecified, uncomplicated; F12.10 Cannabis abuse, uncomplicated; Z79.899 Other long term (current) drug therapy
CPT/HCPCS: 70487; 80047; 83605; 85025; 87040; 87631; 96365; 96375; 99284; J0875; J2270; J2405; Q9967

== ENCOUNTER 2022-05-05 06:01 | Emergency (ER) | payer MEDICARE, MEDICAID ==
[~2022-05-05] VITALS: Ht 170.2 cm; Wt 76.3 kg
[~2022-05-05 06:01] MED LIST changes: +BUPR1FIL; +QUET1TAB17
[2022-05-05 06:02] VITALS: BP 142/92
[2022-05-05 06:41] LABS: BASO # 0.1 10^3/uL (0.0-0.2); BASO % 0.5 % (0.0-1.0); EOS # 0.7 10^3/uL (0.0-0.5); EOS % 6.2 % (0.0-3.0); HEMATOCRIT 41.1 % (42.0-52.0); HEMOGLOBIN 13.8 g/dl (13.5-17.5); LYMPH # 2.3 10^3/uL (1.5-5.0); LYMPH % 19.5 % (24.0-44.0); MEAN CORPUSCULAR HEMOGLOBIN 30.7 pg (27.0-33.0); MEAN CORPUSCULAR HGB CONC 33.6 g/dl (32.0-36.5); MEAN CORPUSCULAR VOLUME 91.3 fl (80.0-96.0); MONO % 8.2 % (2.0-8.0); NEUTROPHILS # 7.7 10^3/uL (1.5-8.5); NEUTROPHILS % 65.3 % (36.0-66.0); PLATELET COUNT, AUTOMATED 338 10^3/uL (150-450); WHITE BLOOD COUNT 11.8 10^3/uL (4.0-10.0)
[2022-05-05 07:04] LABS: ALBUMIN 4.3 G/DL (3.2-5.2); ALKALINE PHOSPHATASE 109 U/L (46-116); ALT/SGPT 16 U/L (7.0-40); AST/SGOT 29 U/L (<34); BILIRUBIN,TOTAL 0.4 MG/DL (0.3-1.2); BLOOD UREA NITROGEN 18 MG/DL (9-23); CALCIUM LEVEL 9.1 MG/DL (8.5-10.1); CARBON DIOXIDE LEVEL 30 MMOL/L (20-31); CHLORIDE LEVEL 104 MMOL/L (98-107); CREATININE FOR GFR 1.17 MG/DL (0.70-1.30); GLOMERULAR FILTRATION RATE > 60.0 (>60); GLUCOSE, FASTING 103 MG/DL (60-100); POTASSIUM SERUM 4.6 MMOL/L (3.5-5.1); SODIUM LEVEL 139 MMOL/L (136-145); TOTAL PROTEIN 7.1 G/DL (5.7-8.2)
[2022-05-05 07:23] LABS: HEPATITIS B SURFACE ANTIGEN NEGATIVE (NEGATIVE)
[2022-05-05 07:35] LABS: HIV 1&2 SCREEN CENTAUR NEGATIVE (NEGATIVE)
[2022-05-05 07:49] LABS: HEPATITIS B SURFACE ANTIBODY NEGATIVE (POSITIVE)
== END 2022-05-05 10:21 | disposition left against medical advice (07) ==
LOC: M ED 06:01
DX: Z53.21 Procedure and treatment not carried out due to patient leaving prior to being seen by health care provider (principal)

== ENCOUNTER 2022-10-10 06:53 | Emergency (ER) | payer MEDICARE, MEDICAID ==
[~2022-10-10] VITALS: Ht 167.6 cm; Wt 64.6 kg
[2022-10-10 06:53] VITALS: BP 134/72; TEMP 97.6; O2SAT 95
[2022-10-10 08:02] LABS: BASO # 0.1 10^3/uL (0.0-0.2); BASO % 0.6 % (0.0-1.0); EOS # 0.4 10^3/uL (0.0-0.5); EOS % 3.8 % (0.0-3.0); HEMATOCRIT 39.1 % (42.0-52.0); HEMOGLOBIN 12.8 g/dl (13.5-17.5); LYMPH # 2.1 10^3/uL (1.5-5.0); LYMPH % 18.5 % (24.0-44.0); MEAN CORPUSCULAR HEMOGLOBIN 30.1 pg (27.0-33.0); MEAN CORPUSCULAR HGB CONC 32.7 g/dl (32.0-36.5); MONO # 1.2 10^3/uL (0.0-0.8); MONO % 10.5 % (2.0-8.0); NEUTROPHILS # 7.6 10^3/uL (1.5-8.5); NEUTROPHILS % 66.2 % (36.0-66.0); PLATELET COUNT, AUTOMATED 309 10^3/uL (150-450); RED BLOOD COUNT 4.25 10^6/uL (4.30-6.10); WHITE BLOOD COUNT 11.4 10^3/uL (4.0-10.0)
[2022-10-10 08:26] LABS: INR 0.87; LIPASE 19 U/L (12-53)
[2022-10-10 08:27] LABS: CK-MB VALUE MASS 2.3 NG/ML (<3.6); PARTIAL THROMBOPLASTIN TIME 31.9 SECONDS (24.8-34.2)
[2022-10-10 08:29] LABS: ALBUMIN 4.1 G/DL (3.2-5.2); ALKALINE PHOSPHATASE 103 U/L (46-116); ALT/SGPT 18 U/L (7.0-40); AST/SGOT 18 U/L (<34); BILIRUBIN,DIRECT 0.1 MG/DL (<0.4); BILIRUBIN,TOTAL 0.4 MG/DL (0.3-1.2); BLOOD UREA NITROGEN 21 MG/DL (9-23); CALCIUM LEVEL 9.4 MG/DL (8.5-10.1); CARBON DIOXIDE LEVEL 30 MMOL/L (20-31); CHLORIDE LEVEL 105 MMOL/L (98-107); CPK CREATINE PHOSPHOKINASE 227 U/L (46-171); CREATININE FOR GFR 1.25 MG/DL (0.70-1.30); GLOMERULAR FILTRATION RATE > 60.0 (>60); GLUCOSE, FASTING 102 MG/DL (60-100); MB/CK RELATIVE INDEX 1.01 (< OR =4); SODIUM LEVEL 141 MMOL/L (136-145); TOTAL PROTEIN 6.7 G/DL (5.7-8.2)
[2022-10-10 08:31] LABS: THYROID STIMULATING HORMONE 2.005 uIU/ML (0.55-4.78)
[2022-10-10] MEDS ORDERED: ISOVUE-370 76% 100ML VIAL As Ordered ONE (09:15)
[2022-10-10 09:50] LABS: CK-MB VALUE MASS 2.2 NG/ML (<3.6)
[2022-10-10 09:52] LABS: CPK CREATINE PHOSPHOKINASE 238 U/L (46-171); MB/CK RELATIVE INDEX 0.92 (< OR =4)
[2022-10-10 10:09] LABS: RSV AMPLIFICATION NEGATIVE (NEGATIVE)
== END 2022-10-10 10:05 | disposition left against medical advice (07) ==
LOC: M ED 06:53
DX: R07.9 Chest pain, unspecified (principal); F19.10 Other psychoactive substance abuse, uncomplicated; I49.49 Other premature depolarization; F17.200 Nicotine dependence, unspecified, uncomplicated; Z79.899 Other long term (current) drug therapy; Z53.9 Procedure and treatment not carried out, unspecified reason
CPT/HCPCS: 36415; 71045; 71275; 80048; 80076; 82550; 82553; 83690; 84439; 84443; 84484; 85025; 85610; 85730; 87631; 93005; 93041; 94760; 99284; Q9967

== ENCOUNTER 2022-10-11 03:12 | Emergency (ER) | payer MEDICARE, MEDICAID ==
[~2022-10-11] VITALS: Ht 170.2 cm; Wt 64.8 kg
[2022-10-11] MEDS: ASPIRIN 81MG CHEW TABLET PO ONE ×2 (04:45→04:46)
[2022-10-11 04:46] LABS: BASO # 0.1 10^3/uL (0.0-0.2); BASO % 0.7 % (0.0-1.0); EOS # 0.7 10^3/uL (0.0-0.5); EOS % 6.9 % (0.0-3.0); HEMATOCRIT 40.1 % (42.0-52.0); HEMOGLOBIN 13.4 g/dl (13.5-17.5); LYMPH # 1.9 10^3/uL (1.5-5.0); LYMPH % 19.4 % (24.0-44.0); MEAN CORPUSCULAR HEMOGLOBIN 30.2 pg (27.0-33.0); MEAN CORPUSCULAR HGB CONC 33.4 g/dl (32.0-36.5); MEAN CORPUSCULAR VOLUME 90.3 fl (80.0-96.0); MONO # 0.9 10^3/uL (0.0-0.8); MONO % 9.5 % (2.0-8.0); NEUTROPHILS # 6.1 10^3/uL (1.5-8.5); NEUTROPHILS % 63.2 % (36.0-66.0); PLATELET COUNT, AUTOMATED 297 10^3/uL (150-450); RED BLOOD COUNT 4.44 10^6/uL (4.30-6.10); WHITE BLOOD COUNT 9.7 10^3/uL (4.0-10.0)
[2022-10-11] MEDS ORDERED: ISOVUE-370 76% 100ML VIAL As Ordered ONE (04:48)
[2022-10-11 04:57] LABS: INR 0.9; PROTHROMBIN TIME 12.3 SECONDS (12.5-14.5)
[2022-10-11 05:09] LABS: CK-MB VALUE MASS 3.2 NG/ML (<3.6); LIPASE 20 U/L (12-53)
[2022-10-11 05:12] LABS: ALBUMIN 3.8 G/DL (3.2-5.2); ALKALINE PHOSPHATASE 100 U/L (46-116); ALT/SGPT 19 U/L (7.0-40); AST/SGOT 24 U/L (<34); BILIRUBIN,DIRECT 0.2 MG/DL (<0.4); BILIRUBIN,TOTAL 0.5 MG/DL (0.3-1.2); BLOOD UREA NITROGEN 18 MG/DL (9-23); CALCIUM LEVEL 8.9 MG/DL (8.5-10.1); CARBON DIOXIDE LEVEL 29 MMOL/L (20-31); CHLORIDE LEVEL 103 MMOL/L (98-107); CREATININE FOR GFR 1.16 MG/DL (0.70-1.30); GLOMERULAR FILTRATION RATE > 60.0 (>60); GLUCOSE, FASTING 79 MG/DL (60-100); POTASSIUM SERUM 4.3 MMOL/L (3.5-5.1); SODIUM LEVEL 138 MMOL/L (136-145); TOTAL PROTEIN 6.4 G/DL (5.7-8.2)
[2022-10-11 05:15] LABS: CPK CREATINE PHOSPHOKINASE 322 U/L (46-171); MB/CK RELATIVE INDEX 0.99 (< OR =4)
[2022-10-11 06:34] LABS: CK-MB VALUE MASS 2.7 NG/ML (<3.6)
[2022-10-11 06:43] LABS: CPK CREATINE PHOSPHOKINASE 271 U/L (46-171); MB/CK RELATIVE INDEX 0.99 (< OR =4)
[2022-10-11 09:23] LABS: AMPHETAMINES LEVEL URINE NEGATIVE (NEGATIVE); BARBITURATES URINE NEGATIVE (NEGATIVE); BENZODIAZEPINES URINE NEGATIVE (NEGATIVE); COCAINE METABOLITE URINE NEGATIVE (NEGATIVE); METHADONE URINE NEGATIVE (NEGATIVE)
[2022-10-11 09:24] LABS: CANNABINOIDS URINE NEGATIVE (NEGATIVE); OPIATES URINE POSITIVE (NEGATIVE); PHENCYCLIDINE URINE NEGATIVE (NEGATIVE)
[2022-10-11 09:51] VITALS: BP 155/100; TEMP 98.2; O2SAT 100
== END 2022-10-11 10:00 | disposition home or self-care (01) ==
LOC: M ED 03:12
DX: R07.9 Chest pain, unspecified (principal); R00.1 Bradycardia, unspecified; F11.10 Opioid abuse, uncomplicated; I49.49 Other premature depolarization; Z79.899 Other long term (current) drug therapy
CPT/HCPCS: 36415; 71045; 71275; 80048; 80076; 80307; 82550; 82553; 83690; 84484; 85025; 85610; 93005; 93041; 94760; 99285; Q9967